=== PATIENT | female | born 1985 | race African-American/Black ===

== ENCOUNTER 2021-06-24 11:57 | Inpatient (IN) | payer BC ==
[2021-06-24] MEDS ORDERED: fentaNYL 100 MCG/2 ML INJ ONE (12:59)
[2021-06-24] MEDS ORDERED: ePHEDrine SULFATE 50 MG/1 ML INJ IV PRN ×2 (13:11→20:54)
[2021-06-24] MEDS ORDERED: fentaNYL 100 MCG/2 ML INJ IV PRN (13:11)
[2021-06-24] MEDS ORDERED: LIDOCAINE (2%) 20 MG/1 ML VIAL 20 ML MDV INFILTRATI ONE (13:11)
[2021-06-24] MEDS ORDERED: LOPERAMIDE 2 MG CAP PO PRN (13:11)
[2021-06-24] MEDS ORDERED: miSOPROStol 200 MCG TAB PR PRN (13:11)
[2021-06-24] MEDS ORDERED: ONDANSETRON 4 MG/2 ML INJ IV PRN ×2 (13:11→20:02)
[2021-06-24] MEDS ORDERED: CARBOPROST TROMETHAMINE 250 MCG/1 ML INJ IM PRN (13:11)
[2021-06-24] MEDS ORDERED: TERBUTALINE 1 MG/1 ML INJ SUB-Q PRN (13:11)
[2021-06-24] MEDS ORDERED: MINERAL OIL 30 ML ORAL LIQD PO PRN (13:11)
[2021-06-24] MEDS ORDERED: ACETAMINOPHEN 325 MG TAB PO PRN ×2 (13:11→20:02)
[2021-06-24] MEDS ORDERED: METHYLERGONOVINE MALEATE 0.2 MG/ML VIAL IM PRN (13:11)
[2021-06-24] MEDS ORDERED: BUTORPHANOL 2 MG/1 ML INJ IV PRN (13:11)
[2021-06-24] MEDS ORDERED: OXYTOCIN 10 UNIT/1 ML INJ IM PRN (13:11)
[2021-06-24] MEDS ORDERED: MAGNESIUM SULFATE 4 GM/100 ML BAG IV ONE (13:13)
[2021-06-24] MEDS ORDERED: LACTATED RINGERS 1,000 ML IV SCH ×2 (13:15→14:30)
--- NOTE | 2021-06-24 13:21 | History and Physical Report ---
History of Present Illness Date of examination: 06/24/21 Chief complaint: back pain and abd pain History of present illness: EDC Confirmation: 07/16/2021 Past History : 2 Term Births: 1 Premature Births: 0 Living Children: 1 Para: 1 Mult. Births: 0 Prev : 1 Aborta: 0 Elect. Ab: 0 Spont. Ab: 0 Ectopics: 0 # 1 Delivery date: 2012 Gestation: 40 Delivery type: Delivery location: [facility] Infant Sex: Male weight: 3kg Comments: arrest of dilatation and LTCS; denies complications Family History Summary: Mother - Has Family History of Diabetes - Entered On: 11/22/2020 Father - Has Family History of Diabetes - Entered On: 11/22/2020 Past Medical History: Reviewed history and no changes required: Negative Past Medical History Past Surgical History: Reviewed history and no changes required: Past Medical History Anesthesia Complications: negative Anemia: negative Autoimmune Disorder: negative Bleeding Disorder: negative Blood Transfusions: negative Breast Disease: negative Diabetes: negative Heart Disease: negative Hypertension: negative Hepatitis/Liver Disease: negative Kidney Disease/UTI: negative Neurologic/Epilepsy/Migraines: negative Phlebitis/Varicosities: negative Psychiatric: negative Pulmonary Disease/Asthma: negative Thyroid Disease: negative Hospitalizations: negative Surgery (Non-sterilization specialist): Abnormal PAP: negative NABEEL Exposure: negative Infertility: negative Uterine Anomaly: negative Uterine Surgery (not C/S): negative Other Gynecologic Problems: negative Infection History Hx of STD: none HIV Risk Eval: no Hepatitis B Risk Eval: low risk Personal hx. of genital herpes: no Partner hx. of genital herpes: no Rash, Viral, or Febrile illness since last LMP? no Varicella/Chicken Pox Status: Previous Disease TB Risk: no Genetic History Congenital Heart Defect: Mom: no Dad: no Sandor Disease: Mom: no Dad: no Thalassemia Mom: no Dad: no Neural Tube Defect Mom: no Dad: no Down's Syndrome Mom: no Dad: no Ebenezer-Sachs Mom: no Dad: no Sickle Cell Disease/Trait Mom: no Dad: no Hemophilia Mom: no Dad: no Muscular Dystrophy Mom: no Dad: no Cystic Fibrosis Mom: no Dad: no Hays Chorea Mom: no Dad: no Mental Retardation Mom: no Dad: no Fragile X Mom: no Dad: no Other Genetic/Chromosomal Disorder Mom: no Dad: no Child w/other defect Mom: no Dad: no Enviromental Exposures Enviromental Exposures Reviewed Xray Exposure: no Medication, drug, or alcohol use since LMP: no Chemical/Other Exposure: no Exposure to Cat Liter: no Hx of Parvovirus (Fifth Disease): no 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 Medications (reviewed today): PLUS 27-1 MG ORAL TABLET ( VIT-FE FUMARATE-FA) 1 po Current Allergies (reviewed today): No known allergies Past History Past Medical History: other (see HPI) Past Surgical History: other (see HPI) 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) Family/Genetic History: other (see HPI) Social history: no significant social history - Obstetrical History Expected Date of Delivery: 07/16/21 Actual Gestation: 36 Week(s) 6 Day(s) : 2 Para: 1 Hx # Term Pregnancies: 1 Number of Pregnancies: 0 Spontaneous Abortions: 0 Induced : 0 Number of Living Children: 1 Medications and Allergies Allergies Allergy/AdvReac Type Severity Reaction Status Date / Time No Known Allergies Allergy Unverified 06/24/21 12:50 Active Meds: Active Medications Acetaminophen (Acetaminophen 325 Mg Tab) 650 mg PO Q4H PRN PRN Reason: Pain, Mild (1-3) Butorphanol Tartrate (Butorphanol 2 Mg/1 Ml Inj) 1 mg IV Q2H PRN PRN Reason: Pain, Moderate(4-6) LABOR PAIN Carboprost Tromethamine (Carboprost Tromethamine 250 Mcg/1 Ml Inj) 250 mcg IM ONCE PRN PRN Reason: Uterine Bleeding Ephedrine Sulfate (Ephedrine Sulfate 50 Mg/1 Ml Inj) 10 mg IV Q2M PRN PRN Reason: Hypotension Fentanyl (Fentanyl 100 Mcg/2 Ml Inj) 100 mcg IV ONCE ONE Stop: 06/24/21 13:56 Fentanyl (Fentanyl 100 Mcg/2 Ml Inj) 100 mcg IV Q2H PRN PRN Reason: Pain,Severe (7-10) LABOR PAIN Lactated Ringer's (Lactated Ringers) 1,000 mls @ 125 mls/hr IV DIRECT HYACINTH Oxytocin/Sodium Chloride (Pitocin/Ns 30 Unit/500ml) 30 units in 500 mls @ 40 mls/hr IV TITR HYACINTH; Protocol Magnesium Sulfate (Magnesium Sulfate 40gm/1000ml) 40 gm in 1,000 mls @ 50 mls/hr IV DIRECT HYACINTH Magnesium Sulfate (Magnesium Sulfate 4gm/100ml) 4 gm in 100 mls @ 300 mls/hr IV ONCE ONE Stop: 06/24/21 13:32 Lidocaine (Lidocaine (2%) 20 Mg/1 Ml Vial 20 Ml Mdv) 20 ml INFILTRATI ONCE ONE Stop: 06/24/21 13:12 Loperamide HCl (Loperamide 2 Mg Cap) 2 mg PO ONCE PRN PRN Reason: give with Hemabate Methylergonovine Maleate (Methylergonovine Maleate 0.2 Mg/Ml Vial) 0.2 mg IM ONCE PRN PRN Reason: Uterine Bleeding Mineral Oil (Mineral Oil 30 Ml Oral Liqd) 30 ml PO QHS PRN PRN Reason: Constipation Misoprostol (Misoprostol 200 Mcg Tab) 800 mcg WI ONCE PRN PRN Reason: Uterine Bleeding Ondansetron HCl (Ondansetron 4 Mg/2 Ml Inj) 4 mg IV Q8H PRN PRN Reason: Nausea And Vomiting Oxytocin (Oxytocin 10 Unit/1 Ml Inj) 10 unit IM ONCE PRN PRN Reason: Uterine Bleeding Terbutaline Sulfate (Terbutaline 1 Mg/1 Ml Inj) 0.25 mg SUB-Q ONCE PRN PRN Reason: Hyperstimulation/Hypertonicity Review of Systems All systems: negative - Vital Signs Vital signs: Vital Signs Pulse Pulse Ox 92 H 97 06/24/21 12:53 06/24/21 12:53 Temp Pulse Resp BP Pulse Ox 80 150/91 98 06/24/21 13:13 06/24/21 13:09 06/24/21 13:13 - Physical Exam Lungs: Positive: Normal air movement Abdomen: Positive: tenderness, other (uterus is mild to moderate intensity) Results All other labs normal. Assessment and Plan 35y/o arrived to triage for evaluation d/t lower back pain and abd tightening since 0430 this morning. Upon arrival, rn unable to auscultate fht. official u/s to bedside found not FHT. Dr. Roberts and myself present during u/s - no cardiac activity noted. Pt reports last feeling baby move around 0730 today. Pt is appropriately distraught. emotional support provided. - Patient Problems (1) Elevated BP without diagnosis of hypertension Current Visit: Yes Status: Acute Plan to address problem: pre-e labs ordered Will start Mag sulfate 2gm/hr with a 4gm load Mag level q6 (2) IUFD (intrauterine ) Current Visit: Yes Status: Acute Plan to address problem: Confirmed no FHT by u/s prev c/s Patient being given time to consider option of vs repeat c/s (3) 36 weeks gestation of Current Visit: Yes Status: Acute
[2021-06-24] MEDS ORDERED: BICITRA ORAL LIQD 30ML ONE (13:53)
[2021-06-24] MEDS ORDERED: METOCLOPRAMIDE 10 MG/2 ML INJ ONE (13:54)
[2021-06-24] MEDS ORDERED: FAMOTIDINE 20 MG/2 ML INJ IV ONE ×2 (13:54→15:00)
[2021-06-24] MEDS ORDERED: fentaNYL 100 MCG/2 ML INJ IV ONE (13:55)
[2021-06-24] MEDS ORDERED: OXYTOCIN DRIP 30 UNITS/500 ML BAG IV SCH ×2 (14:00→20:02)
[2021-06-24] MEDS ORDERED: MAGNESIUM SULFATE 40GM/1000ML 40 GM/1,000 ML BAG IV SCH (14:00)
[2021-06-24 14:23] LABS: Hematocrit 25.9 % (30.3-42.9); Hemoglobin 8.1 gm/dl (10.1-14.3); Mean Corpuscular HGB Conc 31 % (30-34); Mean Corpuscular Volume 72 fl (79-97); Platelet Count 162 K/mm3 (140-440); Red Blood Count 3.58 M/mm3 (3.65-5.03); Red Cell Distribution Width 18.9 % (13.2-15.2)
--- NOTE | 2021-06-24 14:40 | Event Note ---
Date: 06/24/21 To patient bedside with CNM. Support offered to patient and significant other. Discussed with patient diagnosis of PreEclampsia with severe features due to severe range blood pressures. Reviewed need to begin magnesium sulfate for seizure prophylaxis. Options for delivery reviewed with patient, repeat C/S versus induction of labor. Risks and benefits of both reviewed. All questions answered. Patient and desire to proceed with RCS. Orders to be placed and charge nurse notified. All concerns at this time addressed.
--- NOTE | 2021-06-24 14:48 | Anesthesia Day of Surgery ---
Anesthesia Day of Surgery - Day of Surgery Patient Examined: Yes Patient H&P Reviewed: Yes Patient is NPO: Yes
--- NOTE | 2021-06-24 14:48 | Anesthesia Consultation ---
Anesthesia Consult and Med Hx Date of service: 06/24/21 - Airway Anesthetic Teeth Evaluation: Good ROM Head & Neck: Adequate Mental/Hyoid Distance: Adequate Mallampati Class: Class II Intubation Access Assessment: Probably Good - Pulmonary Exam CTA: Yes - Cardiac Exam Cardiac Exam: RRR - Pre-Operative Health Status ASA Pre-Surgery Classification: ASA3 Proposed Anesthetic Plan: Epidural, Spinal - Pulmonary Hx Asthma: No COPD: No Hx Pneumonia: No - Cardiovascular System Hx Hypertension: Yes - Endocrine Hx End Stage Renal Disease: No - Additional Comments Anesthesia Medical History Comments: IUFD
[2021-06-24] MEDS ORDERED: BICITRA ORAL LIQD 30ML PO ONE (15:00)
[2021-06-24] MEDS ORDERED: ceFAZolin/Water 2 GM/20 ML 2 GM/20 ML SYRINGE IV NR (15:00)
[2021-06-24] MEDS ORDERED: METOCLOPRAMIDE 10 MG/2 ML INJ IV ONE (15:00)
[2021-06-24 15:06] LABS: Uric Acid 5.5 mg/dL (3.5-7.6)
[2021-06-24] MEDS ORDERED: BUPIVACAINE/PF (0.5%) 5 MG/1 ML 30 ML VIAL INFILTRATI ONE (15:13)
[2021-06-24] MEDS ORDERED: ONDANSETRON 4 MG/2 ML INJ ONE (15:13)
[2021-06-24] MEDS ORDERED: MIDAZOLAM 5 MG/5 ML INJ MDV IV ONE (15:13)
[2021-06-24] MEDS ORDERED: dexAMETHasone 20 MG/5 ML VIAL ONE (15:13)
[2021-06-24] MEDS ORDERED: KETOROLAC 30 MG/1 ML INJ ONE ×2 (15:13→17:34)
[2021-06-24] MEDS ORDERED: WATER FOR IRRIG STERILE 1,500 ML BOTTLE IR ONE (16:08)
[2021-06-24] MEDS ORDERED: SODIUM CHLORIDE 0.9% IRR 1,500 ML BOTTLE IR ONE ×2 (16:08)
[2021-06-24] MEDS ORDERED: CALCIUM CHLORIDE 1,000 MG/10 ML SYRINGE IV ONE (16:30)
[2021-06-24] MEDS ORDERED: DIPHENOXYLATE/ATROPINE TAB ONE (16:41)
[2021-06-24] MEDS ORDERED: SODIUM CHLORIDE 0.9% 500 ML 500 ML IV ONE (17:00)
[2021-06-24 17:34] LABS: Bacteria,Urine 2+ /HPF (Negative); Bilirubin,Urine NEG (Negative); Blood,Urine LG (Negative); Color,Urine Amber (Yellow); Mucus,Urine 1+ /HPF; Protein,Urine >500 mg/dL (Negative); Urobilinogen,Urine < 2.0 mg/dL (<2.0)
--- NOTE | 2021-06-24 18:26 | Post Operative Note ---
Pre-op diagnosis: IUFD at 36w6d, Preeclampsia with severe features Post-op diagnosis: same (with complete placental abruption) Findings: female 1823g, scant meconium stained fluid, placenta immediately expelled at delivery with maternal surface covered in clot and multiple large dark blood clots, [place] uterus. Bilateral fallopian tubes and ovaries normal in appearance. Procedure: Repeat low transverse section Anesthesia: spinal Surgeon: ISAC GERARD Manager Support: JOSEFA GONGORA Estimated blood loss: other (QBL 1014 ml) Pathology: list (placenta) Specimen disposition: to lab Condition: stable Disposition: PACU
[2021-06-24 19:07] LABS: Hematocrit 23.5 % (30.3-42.9); Hemoglobin 7.2 gm/dl (10.1-14.3)
[2021-06-24] MEDS ORDERED: HYDROcodone/ACETAMINOPHEN 5-325 MG TAB PO PRN (20:02)
[2021-06-24] MEDS ORDERED: ceFAZolin/NS 1 GM/50 ML 1 GM/50 ML BAG IV SCH (20:02)
[2021-06-24] MEDS ORDERED: WITCH HAZEL/ GLYCERIN PAD TP PRN (20:02)
[2021-06-24] MEDS ORDERED: HYDROmorphone 1 MG/1 ML INJ IV PRN (20:02)
[2021-06-24] MEDS ORDERED: SENNOSIDES 8.6 MG TAB PO PRN (20:02)
[2021-06-24] MEDS ORDERED: LANOLIN/ZINC/DIMETHICONE (LANSINOH) 7 GM TP PRN (20:02)
[2021-06-24] MEDS ORDERED: MAGNESIUM HYDROXIDE (MOM) ORAL LIQD UDC PO PRN (20:02)
[2021-06-24] MEDS ORDERED: NALOXONE 0.4 MG/1 ML INJ IV PRN (20:02)
[2021-06-24] MEDS ORDERED: PROMETHAZINE 25 MG RECT SUPP PR PRN (20:02)
--- NOTE | 2021-06-24 20:02 | Event Note ---
Date: 06/24/21 Called nurse to check on patient, discussed with Soraya RN that it is imperative to monitor output and to call if UO drops below 30ml/hr. Soraya states she will do hourly I&Os. The patient just came out of PACU with 100mls of urine in giles bag.
[2021-06-24] MEDS ORDERED: ePHEDrine SULFATE 50 MG/1 ML INJ ONE (20:53)
--- NOTE | 2021-06-24 21:02 | Event Note ---
Date: 06/24/21 received call from Soraya GONGORA re:low blood pressure. Pt is arousable, b/p 60's-80's/30-50's, hr 60-70's, pulse ox 99% on RA. Anesthesia consulted - rn giving dose of ephedrine and IVF bolus. Dr. Roberts called and informed of status and recent H&H - orders for transfusion of 2 ordered units of blood. SANDHYA Pena called and aware of situation and new orders.
[2021-06-24] MEDS ORDERED: SODIUM CHLORIDE 0.9% 500 ML 500 ML IV SCH (22:00)
--- NOTE | 2021-06-24 22:13 | Event Note ---
Date: 06/24/21 To patient bedside for evaluation. Notes pain at her incision site. Some mild lightheadedness, but otherwise feels "ok." Abdomen soft, non-distended, and nontender. Dressing C/D/I. Vitals: BP 109/71, HR 90. UOP 0.74 ml/kg/hr since surgery. S/p ephedrine and approx 400 cc IVF per RN. Will transfuse 2 units pRBCS. Coags ordered. Repeat PIH labs at 0000. Magnesium sulfate held. Will continue to monitor.
[2021-06-24] MEDS: FERROUS SULFATE 325 MG TAB PO SCH (23:52)
[2021-06-25] MEDS: LACTATED RINGERS 1,000 ML IV SCH ×3 (05:01→19:23)
[2021-06-25 05:17] LABS: Hematocrit 27.9 % (30.3-42.9); Mean Corpuscular HGB Conc 32 % (30-34); Mean Corpuscular Volume 77 fl (79-97); Platelet Count 116 K/mm3 (140-440); Red Blood Count 3.62 M/mm3 (3.65-5.03)
[2021-06-25 05:20] LABS: INR 1.05 (0.87-1.13)
[2021-06-25 05:21] LABS: Partial Thromboplastin Time 25.9 Sec. (24.2-36.6); Red Cell Distribution Width 20.1 % (13.2-15.2)
[2021-06-25 05:41] LABS: Uric Acid 6.4 mg/dL (3.5-7.6)
[2021-06-25] MEDS ORDERED: HYDROcodone/ACETAMINOPHEN 5-325 MG TAB PO PRN (08:00)
--- NOTE | 2021-06-25 08:04 | Ultrasound Report ---
Limited OB Ultrasound HISTORY: Evaluate heart tones. TECHNIQUE: Grayscale and color imaging performed. COMPARISON: None IMPRESSION: Very limited exam demonstrates absence of heart tones. Dr. 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 Signer Name: Tobin Tesfaye MD Signed: 06/24/2021 1:42 PM Workstation Name: [id number]
--- NOTE | 2021-06-25 08:14 | Progress Note ---
<JONY LAZARO - Last Filed: 06/25/21 12:59> Assessment and Plan A: 35 y.o. s/p rpt , pre elcampsia with severe features, IUFD. P: Continue with post op care. Keep on labor and delivery for now. Will closely monitor labs and blood pressures. Labs ordered for noon today. Continue with strict I&O's. Subjective - Subjective Date of service: 06/25/21 Principal diagnosis: s/p rpt , POD #1, IUFD, Pre eclampsia with severe features : other (IUFD) Objective - Vital Signs Latest vital signs: Vital Signs Temp Pulse Resp BP BP Pulse Ox Pulse Ox 06/25/21 08:08 83 98 06/25/21 08:03 85 98 06/25/21 07:58 91 H 99 06/25/21 07:53 88 99 06/25/21 07:48 89 99 06/25/21 07:43 86 99 06/25/21 07:38 92 H 97 06/25/21 07:36 82 123/74 06/25/21 07:33 82 98 06/25/21 07:28 86 98 06/25/21 07:23 82 98 99 06/25/21 07:18 101 H 99 06/25/21 07:13 98 H 98 06/25/21 07:08 78 98 06/25/21 07:03 81 98 06/25/21 06:58 83 98 06/25/21 06:53 103 H 98 06/25/21 06:48 84 98 06/25/21 06:43 82 99 06/25/21 06:38 85 98 06/25/21 06:36 84 106/62 06/25/21 06:33 76 97 06/25/21 06:28 78 99 06/25/21 06:23 78 98 06/25/21 06:18 82 98 06/25/21 06:13 77 98 06/25/21 06:08 86 98 06/25/21 06:03 85 98 06/25/21 05:58 82 98 06/25/21 05:53 80 98 06/25/21 05:48 88 99 06/25/21 05:43 89 99 06/25/21 05:38 81 99 06/25/21 05:36 98.2 F 77 18 117/73 117/78 99 06/25/21 05:33 89 99 06/25/21 05:28 88 99 06/25/21 05:23 89 99 06/25/21 05:18 87 99 06/25/21 05:13 89 99 06/25/21 05:08 89 99 06/25/21 05:03 96 H 99 06/25/21 04:58 94 H 98 06/25/21 04:53 113 H 98 06/25/21 04:48 85 99 06/25/21 04:43 95 H 99 06/25/21 04:38 96 H 99 06/25/21 04:37 92 H 153/69 06/25/21 04:33 85 98 06/25/21 04:28 84 98 06/25/21 04:23 94 H 98 06/25/21 04:18 84 98 06/25/21 04:13 93 H 99 06/25/21 04:08 92 H 98 06/25/21 04:03 98 H 99 06/25/21 03:58 97 H 99 06/25/21 03:53 99 H 99 06/25/21 03:48 103 H 99 06/25/21 03:43 79 98 06/25/21 03:38 75 98 06/25/21 03:36 88 121/69 06/25/21 03:33 78 99 06/25/21 03:28 73 98 06/25/21 03:23 80 99 06/25/21 03:18 89 98 06/25/21 03:13 85 99 06/25/21 03:08 77 98 06/25/21 03:03 74 98 06/25/21 02:58 90 98 06/25/21 02:53 84 98 06/25/21 02:48 80 98 06/25/21 02:43 85 98 06/25/21 02:38 102 H 98 06/25/21 02:36 98.3 F 88 16 123/68 123/68 94 06/25/21 02:33 87 98 06/25/21 02:28 85 98 06/25/21 02:23 88 98 06/25/21 02:18 78 98 06/25/21 02:13 74 98 06/25/21 02:08 86 98 06/25/21 02:03 90 98 06/25/21 01:58 84 98 06/25/21 01:53 75 97 06/25/21 01:48 87 98 06/25/21 01:43 87 98 06/25/21 01:38 81 98 06/25/21 01:36 85 113/68 06/25/21 01:33 73 98 06/25/21 01:28 88 98 06/25/21 01:23 80 98 06/25/21 01:18 78 97 06/25/21 01:13 85 97 06/25/21 01:08 88 98 06/25/21 01:06 98.3 F 77 16 120/71 98 06/25/21 01:03 82 98 06/25/21 00:58 81 98 06/25/21 00:53 90 98 06/25/21 00:48 84 98 06/25/21 00:43 81 98 06/25/21 00:38 76 98 06/25/21 00:36 98.3 F 83 16 112/71 98 06/25/21 00:33 76 98 06/25/21 00:28 79 98 06/25/21 00:23 75 98 06/25/21 00:18 80 98 06/25/21 00:13 81 98 06/25/21 00:08 79 98 06/25/21 00:06 98.3 F 83 16 115/63 99 06/25/21 00:05 98.3 F 83 16 115/63 99 06/25/21 00:03 95 H 99 06/24/21 23:58 79 98 06/24/21 23:55 98.1 F 86 16 115/68 98 06/24/21 23:53 79 98 06/24/21 23:48 84 98 06/24/21 23:43 83 98 06/24/21 23:38 94 H 98 06/24/21 23:35 98.3 F 86 16 115/68 115/68 98 06/24/21 23:33 94 H 98 06/24/21 23:29 80 112/63 06/24/21 23:28 92 H 98 06/24/21 23:25 98.2 F 81 16 112/63 98 06/24/21 23:23 83 98 06/24/21 23:18 106 H 99 06/24/21 23:13 85 98 06/24/21 23:10 98.2 F 90 16 102/63 97 05 23:08 78 98 05 23:06 88 102/63 06/24/21 23:05 98.2 F 90 16 102/63 97 05 23:03 82 98 06/24/21 22:58 83 99 05 22:53 85 99 06/24/21 22:48 82 98 06/24/21 22:43 88 99 06/24/21 22:38 101 H 100 06/24/21 22:37 98.3 F 89 16 113/59 98 06/24/21 22:36 96 H 113/59 06/24/21 22:33 100 H 98 06/24/21 22:28 84 98 06/24/21 22:23 87 98 06/24/21 22:18 92 H 99 06/24/21 22:13 75 99 06/24/21 22:08 85 99 06/24/21 22:07 98.3 F 74 16 111/65 99 06/24/21 22:06 78 111/65 06/24/21 22:03 81 99 06/24/21 21:58 89 100 06/24/21 21:53 87 98 06/24/21 21:48 94 H 100 06/24/21 21:43 75 98 06/24/21 21:38 86 99 06/24/21 21:37 98.1 F 90 16 109/71 99 05 21:33 86 100 06/24/21 21:28 88 110/75 100 05 21:23 97 H 98 06/24/21 21:22 98.3 F 116 H 18 101/86 100 05 21:19 102 H 101/86 05 21:18 87 98 05 21:13 89 98 05 21:08 92 H 99/60 99 05 21:03 86 98 0521 20:58 78 104/72 98 0521 20:53 67 99 05/21 20:50 67 63/38 1005/21 20:48 74 66/41 100 1005/21 20:44 70 62/34 1005/21 20:43 64 99 06/24/21 20:41 98.4 F 64 16 64/33 64/33 99 06/24/21 20:39 62 78/45 06/24/21 20:38 75 88/50 99 06/24/21 20:30 18 06/24/21 19:34 76 100 06/24/21 19:25 99 06/24/21 19:08 98.8 F 80 16 123/86 100 06/24/21 18:55 84 16 138/90 100 06/24/21 18:40 88 16 152/82 06/24/21 18:24 83 16 160/141 06/24/21 18:19 114 H 16 153/97 06/24/21 18:14 106 H 16 146/115 100 06/24/21 18:09 97.7 F 68 16 205/162 100 06/24/21 15:34 101 H 97 06/24/21 15:33 106 H 94 06/24/21 15:29 95 H 95 06/24/21 15:24 100 H 96 06/24/21 15:19 93 H 97 06/24/21 15:14 94 H 99 06/24/21 15:09 90 146/94 97 06/24/21 15:04 72 97 06/24/21 14:59 78 99 06/24/21 14:54 93 H 99 06/24/21 14:49 89 97 06/24/21 14:45 84 94 06/24/21 14:44 72 95 06/24/21 14:39 91 H 136/85 97 06/24/21 14:34 84 95 06/24/21 14:29 89 98 06/24/21 14:24 98.1 F 73 18 129/83 98 06/24/21 14:19 81 96 06/24/21 14:15 98 06/24/21 14:14 67 98 06/24/21 14:13 67 133/83 06/24/21 14:09 80 141/94 97 06/24/21 13:54 91 H 156/99 06/24/21 13:48 99 H 97 06/24/21 13:43 79 100 06/24/21 13:40 84 94 06/24/21 13:39 78 157/95 06/24/21 13:38 72 98 06/24/21 13:33 80 99 06/24/21 13:28 75 96 06/24/21 13:24 76 152/95 06/24/21 13:23 74 99 06/24/21 13:18 79 99 06/24/21 13:13 80 98 06/24/21 13:09 76 150/91 06/24/21 13:08 89 99 06/24/21 13:03 77 99 06/24/21 12:58 105 H 96 06/24/21 12:54 91 H 166/104 06/24/21 12:53 92 H 97 Intake and Output 06/24/21 06/25/21 06/25/21 22:59 06:59 14:59 Intake Total 2200 640 Output Total 670 700 Balance 1530 -60 Intake: IV 2100 Oral 100 640 Blood Product 0 0 Leukoreduced Red Blood 0 Cells Unit [id number] Leukoreduced Red Blood 0 0 Cells Unit [id number] Output: Urine 670 700 Indwelling Catheter 260 360 Uretheral (Pedroza) 260 340 Other: Total, Intake Amount 50 240 Total, Output Amount 60 80 Estimated Blood Loss 1,014 - Exam Narrative Exam: Pt denies BRAND, blurred vision, spots before her eyes, chest pain, shortness of breath, and upper abdominal pain. Blood pressure ranges have been 110's-120's/50-60's. Her mag was discontinued during the night d/t blood pressure ranges being 60's/30-40's after pain medication administration. Offe red emotional support d/t IUFD. Breasts: Present: deferred Cardiovascular: Present: Normal S1, Normal S2 Lungs: Present: Clear to auscultation Abdomen: Present: normal appearance, soft, other (hypoactive bowel sounds) Vulva: both: normal Uterus: Present: normal, firm Extremities: Present: edema (+ edema noted.) Deep Tendon Reflex Grade: Normal +2 Incision: Present: normal, dry, intact, dressed - Labs Labs: Abnormal lab results 06/24/21 06/24/21 06/24/21 Range/Units 13:40 13:40 13:40 WBC 16.0 H (4.5-11.0) K/mm3 RBC 3.58 L (3.65-5.03) M/mm3 Hgb 8.1 L (10.1-14.3) gm/dl Hct 25.9 L (30.3-42.9) % MCV 72 L (79-97) fl MCH 23 L (28-32) pg RDW 18.9 H (13.2-15.2) % Plt Count (140-440) K/mm3 D-Dimer (0-234) ng/mlDDU Creatinine 1.4 H (0.6-1.2) mg/dL Magnesium (1.7-2.3) mg/dL AST 48 H (5-40) units/L Lactate Dehydrogenase 886 H (91-180) units/L Urine WBC (Auto) (0.0-6.0) /HPF Crossmatch See Detail 06/24/21 06/24/21 06/24/21 Range/Units 18:47 18:47 Unknown WBC (4.5-11.0) K/mm3 RBC (3.65-5.03) M/mm3 Hgb 7.2 L (10.1-14.3) gm/dl Hct 23.5 L (30.3-42.9) % MCV (79-97) fl MCH (28-32) pg RDW (13.2-15.2) % Plt Count (140-440) K/mm3 D-Dimer (0-234) ng/mlDDU Creatinine (0.6-1.2) mg/dL Magnesium 3.90 H (1.7-2.3) mg/dL AST (5-40) units/L Lactate Dehydrogenase (91-180) units/L Urine WBC (Auto) 24.0 H (0.0-6.0) /HPF Crossmatch 06/25/21 06/25/21 06/25/21 Range/Units 04:50 04:50 04:50 WBC 20.2 H (4.5-11.0) K/mm3 RBC 3.62 L (3.65-5.03) M/mm3 Hgb 9.0 L (10.1-14.3) gm/dl Hct 27.9 L (30.3-42.9) % MCV 77 L (79-97) fl MCH 25 L (28-32) pg RDW 20.1 H (13.2-15.2) % Plt Count 116 L (140-440) K/mm3 D-Dimer 3839.04 H (0-234) ng/mlDDU Creatinine 2.6 H D (0.6-1.2) mg/dL Magnesium (1.7-2.3) mg/dL AST (5-40) units/L Lactate Dehydrogenase 574 H (91-180) units/L Urine WBC (Auto) (0.0-6.0) /HPF Crossmatch <LATASHA JAFFE D - Last Filed: 06/25/21 17:46> Assessment and Plan Preeclampsia and abruption discussed with Ms. Everett and her her . Plan of care reviewed. Questions encouraged and answered. They voiced understanding and agreed with POC Objective - Vital Signs Latest vital signs: Vital Signs Temp Pulse Resp BP BP Pulse Ox Pulse Ox 06/25/21 17:38 83 98 06/25/21 17:36 90 141/77 06/25/21 17:33 82 98 06/25/21 17:28 78 96 06/25/21 17:23 72 97 06/25/21 17:18 68 97 06/25/21 17:13 69 97 06/25/21 17:08 69 98 06/25/21 17:03 71 98 06/25/21 16:58 78 97 06/25/21 16:53 79 97 06/25/21 16:48 69 97 06/25/21 16:43 75 98 06/25/21 16:38 75 98 06/25/21 16:36 73 116/61 06/25/21 16:33 84 99 06/25/21 16:28 91 H 98 06/25/21 16:23 84 99 06/25/21 16:18 81 98 06/25/21 16:13 80 99 06/25/21 16:08 91 H 99 06/25/21 16:03 85 98 06/25/21 15:58 75 98 06/25/21 15:53 88 99 06/25/21 15:48 93 H 99 06/25/21 15:43 96 H 98 06/25/21 15:38 78 98 06/25/21 15:36 75 129/63 06/25/21 15:33 76 98 06/25/21 15:28 76 98 06/25/21 15:23 94 H 98 06/25/21 15:21 98.4 F 18 98 06/25/21 15:18 80 98 06/25/21 15:13 83 98 06/25/21 15:08 76 98 06/25/21 15:03 79 98 06/25/21 14:58 81 99 06/25/21 14:53 87 98 06/25/21 14:48 81 99 06/25/21 14:43 85 99 06/25/21 14:38 79 98 06/25/21 14:36 82 139/62 06/25/21 14:33 76 99 06/25/21 14:28 80 99 06/25/21 14:23 87 98 06/25/21 14:18 81 99 06/25/21 14:13 80 100 06/25/21 14:08 92 H 100 06/25/21 14:05 97.9 F 20 99 06/25/21 14:03 110 H 99 06/25/21 13:58 74 141/73 96 06/25/21 13:53 77 98 06/25/21 13:48 69 97 06/25/21 13:43 73 97 06/25/21 13:38 71 98 06/25/21 13:33 73 96 06/25/21 13:28 72 97 06/25/21 13:23 73 97 06/25/21 13:18 78 98 06/25/21 13:13 72 98 06/25/21 13:08 75 98 06/25/21 13:03 87 98 06/25/21 12:58 94 H 98 06/25/21 12:53 84 98 06/25/21 12:48 82 98 06/25/21 12:43 80 98 06/25/21 12:38 77 98 06/25/21 12:33 93 H 98 06/25/21 12:28 72 98 06/25/21 12:23 73 98 06/25/21 12:18 75 97 06/25/21 12:13 72 97 06/25/21 12:08 72 97 06/25/21 12:03 76 97 06/25/21 11:58 77 97 06/25/21 11:53 98.2 F 72 18 99 06/25/21 11:48 68 98 06/25/21 11:43 69 97 06/25/21 11:38 88 96 06/25/21 11:36 75 150/69 06/25/21 11:33 77 97 06/25/21 11:28 67 97 06/25/21 11:23 86 98 06/25/21 11:18 74 97 06/25/21 11:13 73 97 06/25/21 11:08 71 97 06/25/21 11:03 71 98 06/25/21 10:58 73 97 06/25/21 10:53 78 98 06/25/21 10:48 80 98 06/25/21 10:43 81 98 06/25/21 10:38 82 99 06/25/21 10:36 74 121/70 06/25/21 10:33 77 98 06/25/21 10:28 83 98 06/25/21 10:23 80 98 06/25/21 10:18 79 99 06/25/21 10:13 83 98 06/25/21 10:08 105 H 99 06/25/21 10:03 77 98 06/25/21 09:58 88 99 06/25/21 09:53 110 H 100 06/25/21 09:48 88 99 06/25/21 09:43 94 H 99 06/25/21 09:38 82 99 06/25/21 09:36 93 H 145/83 06/25/21 09:33 90 99 06/25/21 09:28 92 H 99 06/25/21 09:23 99 H 99 06/25/21 09:18 86 99 06/25/21 09:13 79 98 06/25/21 09:08 85 99 06/25/21 09:03 84 98 06/25/21 08:58 94 H 98 06/25/21 08:53 95 H 99 06/25/21 08:48 73 98 06/25/21 08:43 77 98 06/25/21 08:38 75 97 06/25/21 08:36 75 128/63 06/25/21 08:33 78 98 06/25/21 08:28 79 98 06/25/21 08:23 74 97 06/25/21 08:18 82 98 06/25/21 08:13 78 98 06/25/21 08:08 83 98 06/25/21 08:03 85 98 06/25/21 07:58 91 H 99 06/25/21 07:53 88 99 06/25/21 07:48 89 99 06/25/21 07:43 86 99 06/25/21 07:38 92 H 97 06/25/21 07:36 82 123/74 06/25/21 07:33 82 98 06/25/21 07:28 86 98 06/25/21 07:23 82 98 99 06/25/21 07:18 101 H 99 06/25/21 07:13 98 H 98 06/25/21 07:08 78 98 06/25/21 07:03 81 98 06/25/21 06:58 83 98 06/25/21 06:53 103 H 98 06/25/21 06:48 84 98 06/25/21 06:43 82 99 06/25/21 06:38 85 98 06/25/21 06:36 84 106/62 06/25/21 06:33 76 97 06/25/21 06:28 78 99 06/25/21 06:23 78 98 06/25/21 06:18 82 98 06/25/21 06:13 77 98 06/25/21 06:08 86 98 06/25/21 06:03 85 98 06/25/21 05:58 82 98 06/25/21 05:53 80 98 06/25/21 05:48 88 99 06/25/21 05:43 89 99 06/25/21 05:38 81 99 06/25/21 05:36 98.2 F 77 18 117/73 117/78 99 06/25/21 05:33 89 99 06/25/21 05:28 88 99 06/25/21 05:23 89 99 06/25/21 05:18 87 99 06/25/21 05:13 89 99 06/25/21 05:08 89 99 06/25/21 05:03 96 H 99 06/25/21 04:58 94 H 98 06/25/21 04:53 113 H 98 06/25/21 04:48 85 99 06/25/21 04:43 95 H 99 06/25/21 04:38 96 H 99 06/25/21 04:37 92 H 153/69 06/25/21 04:33 85 98 06/25/21 04:28 84 98 06/25/21 04:23 94 H 98 06/25/21 04:18 84 98 06/25/21 04:13 93 H 99 06/25/21 04:08 92 H 98 06/25/21 04:03 98 H 99 06/25/21 03:58 97 H 99 06/25/21 03:53 99 H 99 06/25/21 03:48 103 H 99 06/25/21 03:43 79 98 06/25/21 03:38 75 98 06/25/21 03:36 88 121/69 06/25/21 03:33 78 99 06/25/21 03:28 73 98 06/25/21 03:23 80 99 06/25/21 03:18 89 98 06/25/21 03:13 85 99 06/25/21 03:08 77 98 06/25/21 03:03 74 98 06/25/21 02:58 90 98 06/25/21 02:53 84 98 06/25/21 02:48 80 98 06/25/21 02:43 85 98 06/25/21 02:38 102 H 98 06/25/21 02:36 98.3 F 88 16 123/68 123/68 94 06/25/21 02:33 87 98 06/25/21 02:28 85 98 06/25/21 02:23 88 98 06/25/21 02:18 78 98 06/25/21 02:13 74 98 06/25/21 02:08 86 98 06/25/21 02:03 90 98 06/25/21 01:58 84 98 06/25/21 01:53 75 97 06/25/21 01:48 87 98 06/25/21 01:43 87 98 06/25/21 01:38 81 98 06/25/21 01:36 85 113/68 06/25/21 01:33 73 98 06/25/21 01:28 88 98 06/25/21 01:23 80 98 06/25/21 01:18 78 97 06/25/21 01:13 85 97 06/25/21 01:08 88 98 06/25/21 01:06 98.3 F 77 16 120/71 98 06/25/21 01:03 82 98 06/25/21 00:58 81 98 06/25/21 00:53 90 98 06/25/21 00:48 84 98 06/25/21 00:43 81 98 06/25/21 00:38 76 98 06/25/21 00:36 98.3 F 83 16 112/71 98 06/25/21 00:33 76 98 06/25/21 00:28 79 98 06/25/21 00:23 75 98 06/25/21 00:18 80 98 06/25/21 00:13 81 98 06/25/21 00:08 79 98 06/25/21 00:06 98.3 F 83 16 115/63 99 06/25/21 00:05 98.3 F 83 16 115/63 99 06/25/21 00:03 95 H 99 06/24/21 23:58 79 98 06/24/21 23:55 98.1 F 86 16 115/68 98 06/24/21 23:53 79 98 06/24/21 23:48 84 98 06/24/21 23:43 83 98 06/24/21 23:38 94 H 98 06/24/21 23:35 98.3 F 86 16 115/68 115/68 98 06/24/21 23:33 94 H 98 06/24/21 23:29 80 112/63 06/24/21 23:28 92 H 98 06/24/21 23:25 98.2 F 81 16 112/63 98 06/24/21 23:23 83 98 06/24/21 23:18 106 H 99 06/24/21 23:13 85 98 06/24/21 23:10 98.2 F 90 16 102/63 97 06/24/21 23:08 78 98 06/24/21 23:06 88 102/63 06/24/21 23:05 98.2 F 90 16 102/63 97 06/24/21 23:03 82 98 06/24/21 22:58 83 99 06/24/21 22:53 85 99 06/24/21 22:48 82 98 06/24/21 22:43 88 99 06/24/21 22:38 101 H 100 06/24/21 22:37 98.3 F 89 16 113/59 98 06/24/21 22:36 96 H 113/59 06/24/21 22:33 100 H 98 06/24/21 22:28 84 98 06/24/21 22:23 87 98 06/24/21 22:18 92 H 99 06/24/21 22:13 75 99 06/24/21 22:08 85 99 06/24/21 22:07 98.3 F 74 16 111/65 99 06/24/21 22:06 78 111/65 06/24/21 22:03 81 99 06/24/21 21:58 89 100 06/24/21 21:53 87 98 06/24/21 21:48 94 H 100 06/24/21 21:43 75 98 06/24/21 21:38 86 99 06/24/21 21:37 98.1 F 90 16 109/71 99 06/24/21 21:33 86 100 06/24/21 21:28 88 110/75 100 06/24/21 21:23 97 H 98 06/24/21 21:22 98.3 F 116 H 18 101/86 100 06/24/21 21:19 102 H 101/86 06/24/21 21:18 87 98 06/24/21 21:13 89 98 06/24/21 21:08 92 H 99/60 99 06/24/21 21:03 86 98 06/24/21 20:58 78 104/72 98 06/24/21 20:53 67 99 06/24/21 20:50 67 63/38 06/24/21 20:48 74 66/41 100 06/24/21 20:44 70 62/34 06/24/21 20:43 64 99 06/24/21 20:41 98.4 F 64 16 64/33 64/33 99 06/24/21 20:39 62 78/45 06/24/21 20:38 75 88/50 99 06/24/21 20:30 18 06/24/21 19:34 76 100 06/24/21 19:25 99 06/24/21 19:08 98.8 F 80 16 123/86 100 06/24/21 18:55 84 16 138/90 100 06/24/21 18:40 88 16 152/82 06/24/21 18:24 83 16 160/141 06/24/21 18:19 114 H 16 153/97 06/24/21 18:14 106 H 16 146/115 100 06/24/21 18:09 97.7 F 68 16 205/162 100 Intake and Output 10/06/21 10/06/21 10/06/21 06:59 14:59 22:59 Intake Total 640 889.583 Output Total 700 225 150 Balance -60 664.583 -150 Intake: IV 889.583 Lactated Ringers 1,000 ml 889.583 @ 125 mls/hr IV DIRECT HYACINTH Rx#:[id number] Oral 640 Blood Product 0 Leukoreduced Red Blood 0 Cells Unit [id number] Leukoreduced Red Blood 0 Cells Unit [id number] Output: Urine 700 225 150 Indwelling Catheter 360 150 150 Uretheral (Pedroza) 340 75 Other: Total, Intake Amount 240 Total, Output Amount 80 100 150 - Labs Labs: Abnormal lab results 06/24/21 06/24/21 06/24/21 Range/Units 13:40 18:47 18:47 WBC (4.5-11.0) K/mm3 RBC (3.65-5.03) M/mm3 Hgb 7.2 L (10.1-14.3) gm/dl Hct 23.5 L (30.3-42.9) % MCV (79-97) fl MCH (28-32) pg RDW (13.2-15.2) % Plt Count (140-440) K/mm3 Lymph % (Auto) (13.4-35.0) % Ashe # (Auto) (0.0-0.8) K/mm3 Seg Neutrophils % (40.0-70.0) % Seg Neutrophils # (1.8-7.7) K/mm3 D-Dimer (0-234) ng/mlDDU Sodium (137-145) mmol/L Carbon Dioxide (22-30) mmol/L BUN (7-17) mg/dL Creatinine (0.6-1.2) mg/dL Glucose (65-100) mg/dL Magnesium 3.90 H (1.7-2.3) mg/dL Alkaline Phosphatase (35-129) units/L Lactate Dehydrogenase (91-180) units/L Total Protein (6.3-8.2) g/dL Albumin (3.9-5) g/dL Crossmatch See Detail 06/25/21 06/25/21 06/25/21 Range/Units 04:50 04:50 04:50 WBC 20.2 H (4.5-11.0) K/mm3 RBC 3.62 L (3.65-5.03) M/mm3 Hgb 9.0 L (10.1-14.3) gm/dl Hct 27.9 L (30.3-42.9) % MCV 77 L (79-97) fl MCH 25 L (28-32) pg RDW 20.1 H (13.2-15.2) % Plt Count 116 L (140-440) K/mm3 Lymph % (Auto) (13.4-35.0) % Ashe # (Auto) (0.0-0.8) K/mm3 Seg Neutrophils % (40.0-70.0) % Seg Neutrophils # (1.8-7.7) K/mm3 D-Dimer 3839.04 H (0-234) ng/mlDDU Sodium (137-145) mmol/L Carbon Dioxide (22-30) mmol/L BUN (7-17) mg/dL Creatinine 2.6 H D (0.6-1.2) mg/dL Glucose (65-100) mg/dL Magnesium (1.7-2.3) mg/dL Alkaline Phosphatase (35-129) units/L Lactate Dehydrogenase 574 H (91-180) units/L Total Protein (6.3-8.2) g/dL Albumin (3.9-5) g/dL Crossmatch 06/25/21 06/25/21 06/25/21 Range/Units 12:30 12:30 12:30 WBC 19.5 H (4.5-11.0) K/mm3 RBC 3.21 L (3.65-5.03) M/mm3 Hgb 7.9 L (10.1-14.3) gm/dl Hct 24.4 L (30.3-42.9) % MCV 76 L (79-97) fl MCH 25 L (28-32) pg RDW 20.2 H (13.2-15.2) % Plt Count 132 L (140-440) K/mm3 Lymph % (Auto) 8.0 L (13.4-35.0) % [place]he # (Auto) 1.1 H (0.0-0.8) K/mm3 Seg Neutrophils % 86.3 H (40.0-70.0) % Seg Neutrophils # 16.9 H (1.8-7.7) K/mm3 D-Dimer 1974.59 H (0-234) ng/mlDDU Sodium 136 L (137-145) mmol/L Carbon Dioxide 16 L (22-30) mmol/L BUN 25 H (7-17) mg/dL Creatinine 2.6 H (0.6-1.2) mg/dL Glucose 127 H (65-100) mg/dL Magnesium (1.7-2.3) mg/dL Alkaline Phosphatase 162 H (35-129) units/L Lactate Dehydrogenase 491 H (91-180) units/L Total Protein 4.9 L (6.3-8.2) g/dL Albumin 2.4 L (3.9-5) g/dL Crossmatch
[2021-06-25] MEDS ORDERED: BUTORPHANOL 2 MG/1 ML INJ IV PRN ×2 (09:00)
[2021-06-25] MEDS: FERROUS SULFATE 325 MG TAB PO SCH ×2 (09:15→21:52)
--- NOTE | 2021-06-25 11:09 | Post Anesthesia Evaluation ---
- Post Anesthesia Evaluation Patient Participated: Yes Airway Patent: Yes Stable Respiratory Function: Yes Nausea/Vomiting: No Temp > 96.8F: Yes Pain Manageable: Yes Adequeate Hydration: Yes Anesthesia Complications: No Block Receding Appropriately: Yes
--- NOTE | 2021-06-25 11:18 | Progress Note ---
Spinal Anesthesia Block - Spinal Anesthesia Block Start Time: 15:44 Stop Time: 15:46 Performed by:: TENZIN JIMENEZ Procedure: Sitting, sterile chlorahexadine 0.5% prep/drape, 1% lidocaine skin local, 25G spinal needle + introducer at L3-4, + CSF, - Heme, [1.9 ml 0.5% bupivacaine + 10 mcg dexmedetomidine] injected, drape removed, patient positioned supine with left uterine displacement, and spinal level verified to be adequate prior to surgery
[2021-06-25 12:52] LABS: Basophils % (Auto) 0.3 % (0.0-1.8); Hematocrit 24.4 % (30.3-42.9); Hemoglobin 7.9 gm/dl (10.1-14.3); Lymphocytes # (Auto) 1.6 K/mm3 (1.2-5.4); Mean Corpuscular HGB Conc 32 % (30-34); Mean Corpuscular Volume 76 fl (79-97); Monocytes # (Auto) 1.1 K/mm3 (0.0-0.8); Monocytes % (Auto) 5.4 % (0.0-7.3); Platelet Count 132 K/mm3 (140-440); Red Blood Count 3.21 M/mm3 (3.65-5.03)
[2021-06-25 12:53] LABS: Red Cell Distribution Width 20.2 % (13.2-15.2)
[2021-06-25 13:02] LABS: INR 1.12 (0.87-1.13); Partial Thromboplastin Time 27.8 Sec. (24.2-36.6)
[2021-06-25 13:10] LABS: Albumin 2.4 g/dL (3.9-5); Calcium 8.4 mg/dL (8.4-10.2)
[2021-06-25] MEDS ORDERED: ACETAMINOPHEN 325 MG TAB PO SCH (14:30)
[2021-06-25] MEDS: ACETAMINOPHEN 500 MG TAB PO SCH ×2 (15:40→21:36)
--- NOTE | 2021-06-25 16:11 | Operative Report ---
Operative Report Operative Report: Procedure Date: 06/24/2021 Preoperative diagnosis: IUP @ 36.6 weeks, history of prior section, IUFD, preeclampsia with severe features, suspected placental abruption Postoperative diagnosis: same, s/p PLTCS with complete placental abruption Procedure: Primary Low Transverse Section Surgeon: Kirti Roberts MD Marking Devices Assembler: Yelena Beard CNM Anesthesia: spinal Complications: none QBL: 1014 ml IV Fluids:2000 ml UOP: 50 ml, clear urine at the end of procedure Indications: IUFD with history of prior section, maternal request Findings: 1624g female Amniotic meconium stained Uterus with multiple large dark clots, completely filling the uterus; [place] uterus Fallopian tubes normal in appearance Ovaries Normal in appearance Procedure: The patient was taken to the operating room where spinal anesthesia was found to be adequate. She was then prepped and draped in the usual sterile fashion in the dorsal supine position with a leftward tilt. 2 g Ancef was given prior to the procedure. A Pfannenstiel skin incision was made with the scalpel and carried through to the underlying layer of fascia with the bovie. The fascia was incised in the midline and the incision extended laterally. The superior aspect of the fascial incision was then grasped with the Dre's clamps, elevated, and the underlying rectus muscles dissected off bluntly and with sharp dissection using the scalpel. Attention was then turned to the inferior aspect of this incision which, in a similar fashion, was grasped, tented up with the Dre clamps, and the rectus was dissected off bluntly and with sharp dissection. The rectus muscles were then in the midline using the scalpel, and the peritoneum identified, tented up and entered sharply with the Metzenbaum scissors. Bloody peritoneal fluid was expelled. The peritoneal incision was then extended superiorly and inferiorly with good visualization of the bladder. The bladder blade was then inserted. The lower uterine segment incised in a transverse fashion with the scalpel. The uterine incision was then extended laterally digitally. The bladder blade was then removed and the was delivered.The placenta was then removed; following this multiple large dark blood clots were expelled from the uterus. the uterus exteriorized and cleared of all clots and debris. The uterine incision was repaired with 0 vicryl in a running locked fashion to obtain excellent hemostasis. A slight extension at the right lateral aspect of the hysterotomy was noted and repaired in a running fashion. An imbrication layer with 0 vicryl done given excellent hemostasis. Uterus returned to the abdomen. The uterus was noted to be boggy during repair and the patient recieved Hemabate and IM pitocin to the uterus. Slight oozing noted, controlled with figure of eight suture. Surgicel powder applied. Good hemostasis noted. The abdomen was irrigated until clear. Dr. Duff scrubbed in to evaluate the uterus for any possible signs of rupture, but none noted. A figure of eight stitch of 2-0 Vicryl was placed to reapproximate the rectus muscle. The fascia was reapproximated with 0 vicryl in a running fashion. Subcutaneous layer reapproximated with interrupted sutures of 2-0 vicryl. The skin was closed with 4-0 monocryl in a subcuticular fashion and the incision sealed with Steri-strips.The patient tolerated the procedure well. Sponge, lap, needle counts correct X 3. The patient was taken to the recovery room in a stable condition.
[2021-06-25 18:25] LABS: Basophils % (Auto) 0.1 % (0.0-1.8); Eosinophils % (Auto) 0.1 % (0.0-4.3); Hematocrit 23.2 % (30.3-42.9); Hemoglobin 7.6 gm/dl (10.1-14.3); Lymphocytes # (Auto) 1.9 K/mm3 (1.2-5.4); Lymphocytes % (Auto) 9.7 % (13.4-35.0); Mean Corpuscular HGB Conc 33 % (30-34); Mean Corpuscular Volume 77 fl (79-97); Monocytes # (Auto) 1.5 K/mm3 (0.0-0.8); Monocytes % (Auto) 7.4 % (0.0-7.3); Platelet Count 120 K/mm3 (140-440); Red Blood Count 3.01 M/mm3 (3.65-5.03)
[2021-06-25 18:26] LABS: Red Cell Distribution Width 20.7 % (13.2-15.2)
[2021-06-25 18:38] LABS: Albumin 2.4 g/dL (3.9-5); Calcium 8.3 mg/dL (8.4-10.2)
--- NOTE | 2021-06-25 19:52 | Event Note ---
Date: 06/25/21 Chart and labs reviewed, patient doing well. Nephrology consult ordered, unable to contact [employer] Dr. Robert Kohler at [phone] at this time. She's stable overall thereforem will attempt to contact in the am.
[2021-06-26 00:38] LABS: Basophils % (Auto) 0.1 % (0.0-1.8); Hematocrit 22.1 % (30.3-42.9); Hemoglobin 7.3 gm/dl (10.1-14.3); Lymphocytes # (Auto) 2.2 K/mm3 (1.2-5.4); Lymphocytes % (Auto) 11.9 % (13.4-35.0); Mean Corpuscular HGB Conc 33 % (30-34); Mean Corpuscular Volume 77 fl (79-97); Monocytes # (Auto) 1.2 K/mm3 (0.0-0.8); Monocytes % (Auto) 6.6 % (0.0-7.3); Platelet Count 118 K/mm3 (140-440); Red Blood Count 2.88 M/mm3 (3.65-5.03)
[2021-06-26 01:01] LABS: Albumin 2.2 g/dL (3.9-5); Calcium 8.6 mg/dL (8.4-10.2)
[2021-06-26] MEDS ORDERED: SODIUM CHLORIDE 0.9% 500 ML 500 ML IV ONE (01:28)
--- NOTE | 2021-06-26 01:32 | Event Note ---
Date: 06/26/21 Chart and labs reviewed. Spoke with RN for update. No problems. Will proceed with transfusion of 1uPRBC to optimize recovery.
[2021-06-26] MEDS: SIMETHICONE 80 MG CHEW TAB PO PRN (02:08)
[2021-06-26] MEDS ORDERED: diphenhydrAMINE 25 MG CAP PO ONE (02:40)
[2021-06-26] MEDS: LACTATED RINGERS 1,000 ML IV SCH (02:55)
[2021-06-26] MEDS: ACETAMINOPHEN 500 MG TAB PO SCH ×3 (03:00→17:14)
--- NOTE | 2021-06-26 07:58 | Progress Note ---
Assessment and Plan Pt resting no complaints, fundus firm, lochia scant, incision clean and dry, dressing removed. Giles in place for accurate I&O d/t concern over urine output. Output in last 12hr has been >100/hr. Will leave giles in place for time being. Pt encouraged to shower and ambulate. Dr. Weaver consulted, will transfer to Mother/Baby unit. Customer Services Supervisor called @phone number in Dr. Johnson's note, no answer, left VM, catalyst unit operator aware. B/Ps 150s/80-90s, will start Labetalol PO BID. Plan of care discussed w/ Pt and RN, will reassess PRN. - Patient Problems (1) IUFD (intrauterine ) Current Visit: Yes Status: Acute Plan to address problem: Jacqueline's Gift initiated (2) Pre-eclampsia Current Visit: Yes Status: Acute Qualifiers: Trimester: third trimester Qualified Code(s): O14.93 - Unspecified pre- eclampsia, third trimester (3) Previous section Current Visit: No Status: Acute Plan to address problem: Advance activity as tolerated (4) Elevated serum creatinine Current Visit: Yes Status: Acute Plan to address problem: Nephrology consult on chart - called Dr. Kohler and message left continue giles cath for accurate I&O Continue strict I&Os Subjective - Subjective Date of service: 06/26/21 Principal diagnosis: s/p rpt , POD #2; IUFD, Pre eclampsia with severe features Interval history: EDC Confirmation: 07/16/2021 Past History : 2 Term Births: 1 Premature Births: 0 Living Children: 1 Para: 1 Mult. Births: 0 Prev : 1 Aborta: 0 Elect. Ab: 0 Spont. Ab: 0 Ectopics: 0 # 1 Delivery date: 2014 Weeks Gestation: 40 Delivery type: Delivery location: [facility] Sex: Male weight: 3kg Comments: arrest of dilatation and LTCS; denies complications Family History Summary: Mother - Has Family History of Diabetes - Entered On: 11/22/2020 Father - Has Family History of Diabetes - Entered On: 11/22/2020 Past Medical History: Reviewed history and no changes required: Negative Past Medical History Past Surgical History: Reviewed history and no changes required: Past Medical History Anesthesia Complications: negative Anemia: negative Autoimmune Disorder: negative Bleeding Disorder: negative Blood Transfusions: negative Breast Disease: negative Diabetes: negative Heart Disease: negative Hypertension: negative Hepatitis/Liver Disease: negative Kidney Disease/UTI: negative Neurologic/Epilepsy/Migraines: negative Phlebitis/Varicosities: negative Psychiatric: negative Pulmonary Disease/Asthma: negative Thyroid Disease: negative Hospitalizations: negative Surgery (Non-customer development manager): Abnormal PAP: negative NABEEL Exposure: negative Infertility: negative Uterine Anomaly: negative Uterine Surgery (not C/S): negative Other Gynecologic Problems: negative Infection History Hx of STD: none HIV Risk Eval: no Hepatitis B Risk Eval: low risk Personal hx. of genital herpes: no Partner hx. of genital herpes: no Rash, Viral, or Febrile illness since last LMP? no Varicella/Chicken Pox Status: Previous Disease TB Risk: no Genetic History Congenital Heart Defect: Mom: no Dad: no Sandor Disease: Mom: no Dad: no Thalassemia Mom: no Dad: no Neural Tube Defect Mom: no Dad: no Down's Syndrome Mom: no Dad: no Ebenezer-Sachs Mom: no Dad: no Sickle Cell Disease/Trait Mom: no Dad: no Hemophilia Mom: no Dad: no Muscular Dystrophy Mom: no Dad: no Cystic Fibrosis Mom: no Dad: no Neva Chorea Mom: no Dad: no Mental Retardation Mom: no Dad: no Fragile X Mom: no Dad: no Other Genetic/Chromosomal Disorder Mom: no Dad: no Child w/other defect Mom: no Dad: no Enviromental Exposures Enviromental Exposures Reviewed Xray Exposure: no Medication, drug, or alcohol use since LMP: no Chemical/Other Exposure: no Exposure to Cat Liter: no Hx of Parvovirus (Fifth Disease): no 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 Medications (reviewed today): PLUS 27-1 MG ORAL TABLET ( VIT-FE FUMARATE-FA) 1 po Current Allergies (reviewed today): No known allergies Patient reports: appetite normal, pain well controlled, flatus, no nauseated [place]: Objective - Vital Signs Latest vital signs: Vital Signs Temp Pulse Resp BP BP Pulse Ox Pulse Ox 06/26/21 07:54 68 99 06/26/21 07:49 58 L 99 06/26/21 07:44 56 L 99 06/26/21 07:39 57 L 99 06/26/21 07:34 60 99 06/26/21 07:32 99 06/26/21 07:29 66 99 06/26/21 07:24 66 100 06/26/21 07:19 66 98 06/26/21 07:14 64 153/84 98 06/26/21 07:12 99 06/26/21 07:11 97.8 F 16 99 06/26/21 07:09 69 98 06/26/21 07:04 57 L 98 06/26/21 06:59 76 99 06/26/21 06:54 64 99 06/26/21 06:53 65 92 06/26/21 06:49 61 99 06/26/21 06:44 67 98 06/26/21 06:39 62 98 06/26/21 06:34 58 L 99 06/26/21 06:29 58 L 99 06/26/21 06:24 59 L 99 06/26/21 06:19 60 98 06/26/21 06:14 58 L 99 06/26/21 06:09 60 98 06/26/21 06:04 57 L 98 06/26/21 05:59 59 L 98 06/26/21 05:54 57 L 98 06/26/21 05:49 58 L 98 06/26/21 05:44 60 99 06/26/21 05:41 98 06/26/21 05:39 71 99 06/26/21 05:34 61 98 06/26/21 05:29 65 99 06/26/21 05:24 64 98 06/26/21 05:20 79 92 06/26/21 05:19 71 99 06/26/21 05:14 77 98 06/26/21 05:09 74 98 06/26/21 05:06 73 90 06/26/21 05:04 59 L 99 06/26/21 04:59 73 98 06/26/21 04:54 63 99 06/26/21 04:49 63 98 06/26/21 04:44 62 98 06/26/21 04:39 61 99 06/26/21 04:34 60 98 06/26/21 04:29 58 L 99 06/26/21 04:24 56 L 99 06/26/21 04:19 60 99 06/26/21 04:18 65 159/78 06/26/21 04:15 98.3 F 68 18 159/78 06/26/21 04:14 58 L 99 06/26/21 04:09 58 L 99 06/26/21 04:04 54 L 99 06/26/21 03:59 63 99 06/26/21 03:54 55 L 98 06/26/21 03:49 60 98 06/26/21 03:48 98.6 F 06/26/21 03:46 65 150/86 99 06/26/21 03:45 69 18 150/86 06/26/21 03:44 58 L 99 06/26/21 03:39 58 L 98 06/26/21 03:34 58 L 99 06/26/21 03:29 58 L 99 06/26/21 03:24 58 L 98 06/26/21 03:19 74 99 06/26/21 03:15 98.2 F 65 18 140/85 97 06/26/21 03:14 63 140/85 97 06/26/21 03:09 57 L 98 06/26/21 03:04 66 99 06/26/21 02:59 67 100 06/26/21 02:56 77 86 06/26/21 02:54 72 94 06/26/21 02:49 61 100 06/26/21 02:47 64 157/75 06/26/21 02:45 98.4 F 67 18 157/75 06/26/21 02:44 67 99 06/26/21 02:39 67 99 06/26/21 02:34 62 98 06/26/21 02:30 98.3 F 64 18 140/75 06/26/21 02:29 64 99 06/26/21 02:24 68 99 06/26/21 02:19 66 99 06/26/21 02:14 73 99 06/26/21 02:09 68 99 06/26/21 02:04 67 99 06/26/21 01:59 68 99 06/26/21 01:54 64 99 06/26/21 01:49 70 99 06/26/21 01:44 73 99 06/26/21 01:39 70 99 06/26/21 01:34 78 98 06/26/21 01:30 98 06/26/21 01:29 64 99 06/26/21 01:24 68 99 06/26/21 01:19 62 100 06/26/21 01:14 62 99 06/26/21 01:09 63 99 06/26/21 01:04 63 99 06/26/21 00:59 62 99 06/26/21 00:54 64 98 06/26/21 00:49 65 99 06/26/21 00:44 64 99 06/26/21 00:39 66 99 06/26/21 00:34 61 99 06/26/21 00:29 62 99 06/26/21 00:24 67 99 06/26/21 00:19 70 100 06/26/21 00:14 80 98 06/26/21 00:09 66 97 06/26/21 00:04 67 98 06/25/21 23:59 67 98 06/25/21 23:54 63 98 06/25/21 23:49 77 97 06/25/21 23:44 65 97 06/25/21 23:41 75 154/79 06/25/21 23:40 98.6 F 64 18 154/79 99 98 06/25/21 23:39 76 100 06/25/21 23:34 77 94 06/25/21 23:29 65 99 06/25/21 23:24 62 99 06/25/21 23:19 61 99 06/25/21 23:14 63 99 06/25/21 23:09 69 99 06/25/21 23:04 64 98 06/25/21 22:59 64 98 06/25/21 22:54 64 98 06/25/21 22:49 65 98 06/25/21 22:44 64 98 06/25/21 22:39 64 98 06/25/21 22:34 62 98 06/25/21 22:29 59 L 99 06/25/21 22:24 61 99 06/25/21 22:19 58 L 99 06/25/21 22:14 63 99 06/25/21 22:09 67 100 06/25/21 22:04 67 99 06/25/21 21:59 66 100 06/25/21 21:55 98 06/25/21 21:54 79 100 06/25/21 21:49 67 100 06/25/21 21:44 80 99 06/25/21 21:39 75 100 06/25/21 21:36 18 06/25/21 21:34 71 100 06/25/21 21:29 75 100 06/25/21 21:24 78 98 06/25/21 21:19 69 100 06/25/21 21:14 64 99 06/25/21 21:09 70 99 06/25/21 21:04 73 99 06/25/21 20:59 80 99 06/25/21 20:54 72 99 06/25/21 20:49 70 100 06/25/21 20:44 75 99 06/25/21 20:39 85 100 06/25/21 20:34 78 99 06/25/21 20:29 70 100 06/25/21 20:24 67 100 06/25/21 20:19 65 100 06/25/21 20:14 72 99 06/25/21 20:09 70 100 06/25/21 20:04 64 98 06/25/21 19:59 70 100 06/25/21 19:54 80 96 06/25/21 19:49 65 99 06/25/21 19:44 60 140/79 98 06/25/21 19:43 98.8 F 62 18 140/79 98 06/25/21 19:40 98 06/25/21 19:39 70 100 06/25/21 19:34 68 100 06/25/21 19:29 66 99 06/25/21 19:24 68 98 06/25/21 19:19 69 98 06/25/21 19:14 66 98 06/25/21 19:09 73 99 06/25/21 19:04 68 99 06/25/21 18:59 84 98 06/25/21 18:54 76 98 06/25/21 18:49 73 98 06/25/21 18:44 85 99 06/25/21 18:39 84 97 06/25/21 18:34 77 98 06/25/21 18:29 73 98 06/25/21 18:24 77 98 06/25/21 18:19 82 99 06/25/21 18:14 76 98 06/25/21 18:09 78 99 06/25/21 18:04 81 98 06/25/21 17:59 81 99 06/25/21 17:57 85 38 L 06/25/21 17:53 93 H 98 06/25/21 17:48 79 98 06/25/21 17:46 98.2 F 18 99 06/25/21 17:43 77 99 06/25/21 17:38 83 98 06/25/21 17:36 90 141/77 06/25/21 17:33 82 98 06/25/21 17:28 78 96 06/25/21 17:23 72 97 06/25/21 17:18 68 97 06/25/21 17:13 69 97 06/25/21 17:08 69 98 06/25/21 17:03 71 98 06/25/21 16:58 78 97 06/25/21 16:53 79 97 06/25/21 16:48 69 97 06/25/21 16:43 75 98 06/25/21 16:38 75 98 06/25/21 16:36 73 116/61 06/25/21 16:33 84 99 06/25/21 16:28 91 H 98 06/25/21 16:23 84 99 06/25/21 16:18 81 98 06/25/21 16:13 80 99 06/25/21 16:08 91 H 99 06/25/21 16:03 85 98 06/25/21 15:58 75 98 06/25/21 15:53 88 99 06/25/21 15:48 93 H 99 06/25/21 15:43 96 H 98 06/25/21 15:38 78 98 06/25/21 15:36 75 129/63 06/25/21 15:33 76 98 06/25/21 15:28 76 98 06/25/21 15:23 94 H 98 06/25/21 15:21 98.4 F 18 98 06/25/21 15:18 80 98 06/25/21 15:13 83 98 06/25/21 15:08 76 98 06/25/21 15:03 79 98 06/25/21 14:58 81 99 06/25/21 14:53 87 98 06/25/21 14:48 81 99 06/25/21 14:43 85 99 06/25/21 14:38 79 98 06/25/21 14:36 82 139/62 06/25/21 14:33 76 99 06/25/21 14:28 80 99 06/25/21 14:23 87 98 06/25/21 14:18 81 99 06/25/21 14:13 80 100 06/25/21 14:08 92 H 100 06/25/21 14:05 97.9 F 20 99 06/25/21 14:03 110 H 99 06/25/21 13:58 74 141/73 96 06/25/21 13:53 77 98 06/25/21 13:48 69 97 06/25/21 13:43 73 97 06/25/21 13:38 71 98 06/25/21 13:33 73 96 06/25/21 13:28 72 97 06/25/21 13:23 73 97 06/25/21 13:18 78 98 06/25/21 13:13 72 98 06/25/21 13:08 75 98 06/25/21 13:03 87 98 06/25/21 12:58 94 H 98 06/25/21 12:53 84 98 06/25/21 12:48 82 98 06/25/21 12:43 80 98 06/25/21 12:38 77 98 06/25/21 12:33 93 H 98 06/25/21 12:28 72 98 06/25/21 12:23 73 98 06/25/21 12:18 75 97 06/25/21 12:13 72 97 06/25/21 12:08 72 97 06/25/21 12:03 76 97 06/25/21 11:58 77 97 06/25/21 11:53 98.2 F 72 18 99 06/25/21 11:48 68 98 06/25/21 11:43 69 97 06/25/21 11:38 88 96 06/25/21 11:36 75 150/69 06/25/21 11:33 77 97 06/25/21 11:28 67 97 06/25/21 11:23 86 98 06/25/21 11:18 74 97 06/25/21 11:13 73 97 06/25/21 11:08 71 97 06/25/21 11:03 71 98 06/25/21 10:58 73 97 06/25/21 10:53 78 98 06/25/21 10:48 80 98 06/25/21 10:43 81 98 06/25/21 10:38 82 99 06/25/21 10:36 74 121/70 06/25/21 10:33 77 98 06/25/21 10:28 83 98 06/25/21 10:23 80 98 06/25/21 10:18 79 99 06/25/21 10:13 83 98 06/25/21 10:08 105 H 99 06/25/21 10:03 77 98 06/25/21 09:58 88 99 06/25/21 09:53 110 H 100 06/25/21 09:48 88 99 06/25/21 09:43 94 H 99 06/25/21 09:38 82 99 06/25/21 09:36 93 H 145/83 06/25/21 09:33 90 99 06/25/21 09:28 92 H 99 06/25/21 09:23 99 H 99 06/25/21 09:18 86 99 06/25/21 09:13 79 98 06/25/21 09:08 85 99 06/25/21 09:03 84 98 06/25/21 08:58 94 H 98 06/25/21 08:53 95 H 99 06/25/21 08:48 73 98 06/25/21 08:43 77 98 06/25/21 08:38 75 97 06/25/21 08:36 75 128/63 06/25/21 08:33 78 98 06/25/21 08:28 79 98 06/25/21 08:23 74 97 06/25/21 08:18 82 98 06/25/21 08:13 78 98 06/25/21 08:08 83 98 06/25/21 08:03 85 98 06/25/21 07:58 91 H 99 Intake and Output 06/25/21 06/25/21 06/26/21 15:59 23:59 07:59 Intake Total 535.031 0285.25 941.667 Output Total 225 1100 1100 Balance 664.583 -73.75 -158.333 Intake: IV 889.583 906.25 941.667 Lactated Ringers 1,000 ml 889.583 906.25 941.667 @ 125 mls/hr IV DIRECT HYACINTH Rx#:[id number] Oral 120 Blood Product 0 Leukoreduced Red Blood 0 Cells Unit [id number] Output: Urine 225 1100 1100 Indwelling Catheter 150 1100 1100 Uretheral (Giles) 75 Other: Total, Intake Amount 120 Total, Output Amount 100 250 200 - Exam Breasts: Present: normal Cardiovascular: Present: Regular rate Lungs: Present: Clear to auscultation, Normal air movement Abdomen: Present: normal appearance, soft Vulva: both: normal Uterus: Present: normal, firm, fundal height below umbilicus Extremities: Present: edema Deep Tendon Reflex Grade: Normal +2 Incision: Present: normal, dry, intact - Labs Labs: Abnormal lab results 06/24/21 06/25/21 06/25/21 Range/Units 13:40 12:30 12:30 WBC 19.5 H (4.5-11.0) K/mm3 RBC 3.21 L (3.65-5.03) M/mm3 Hgb 7.9 L (10.1-14.3) gm/dl Hct 24.4 L (30.3-42.9) % MCV 76 L (79-97) fl MCH 25 L (28-32) pg RDW 20.2 H (13.2-15.2) % Plt Count 132 L (140-440) K/mm3 Lymph % (Auto) 8.0 L (13.4-35.0) % [place] % (Auto) (0.0-7.3) % [place] # (Auto) 1.1 H (0.0-0.8) K/mm3 Seg Neutrophils % 86.3 H (40.0-70.0) % Seg Neutrophils # 16.9 H (1.8-7.7) K/mm3 D-Dimer (0-234) ng/mlDDU Sodium 136 L (137-145) mmol/L Carbon Dioxide 16 L (22-30) mmol/L BUN 25 H (7-17) mg/dL Creatinine 2.6 H (0.6-1.2) mg/dL Glucose 127 H (65-100) mg/dL Calcium (8.4-10.2) mg/dL Alkaline Phosphatase 162 H (35-129) units/L Lactate Dehydrogenase 491 H (91-180) units/L Total Protein 4.9 L (6.3-8.2) g/dL Albumin 2.4 L (3.9-5) g/dL Crossmatch See Detail 06/25/21 06/25/21 06/25/21 Range/Units 12:30 18:00 18:00 WBC 20.0 H (4.5-11.0) K/mm3 RBC 3.01 L (3.65-5.03) M/mm3 Hgb 7.6 L (10.1-14.3) gm/dl Hct 23.2 L (30.3-42.9) % MCV 77 L (79-97) fl MCH 25 L (28-32) pg RDW 20.7 H (13.2-15.2) % Plt Count 120 L (140-440) K/mm3 Lymph % (Auto) 9.7 L (13.4-35.0) % [place] % (Auto) 7.4 H (0.0-7.3) % [place] # (Auto) 1.5 H (0.0-0.8) K/mm3 Seg Neutrophils % 82.7 H (40.0-70.0) % Seg Neutrophils # 16.6 H (1.8-7.7) K/mm3 D-Dimer 1974.59 H (0-234) ng/mlDDU Sodium (137-145) mmol/L Carbon Dioxide 18 L (22-30) mmol/L BUN 29 H (7-17) mg/dL Creatinine 2.6 H (0.6-1.2) mg/dL Glucose 128 H (65-100) mg/dL Calcium 8.3 L (8.4-10.2) mg/dL Alkaline Phosphatase 150 H (35-129) units/L Lactate Dehydrogenase 487 H (91-180) units/L Total Protein 4.9 L (6.3-8.2) g/dL Albumin 2.4 L (3.9-5) g/dL Crossmatch 06/26/21 06/26/21 Range/Units 00:12 00:12 WBC 18.6 H (4.5-11.0) K/mm3 RBC 2.88 L (3.65-5.03) M/mm3 Hgb 7.3 L (10.1-14.3) gm/dl Hct 22.1 L (30.3-42.9) % MCV 77 L (79-97) fl MCH 25 L (28-32) pg RDW 20.0 H (13.2-15.2) % Plt Count 118 L (140-440) K/mm3 Lymph % (Auto) 11.9 L (13.4-35.0) % [place] % (Auto) (0.0-7.3) % [place] # (Auto) 1.2 H (0.0-0.8) K/mm3 Seg Neutrophils % 81.4 H (40.0-70.0) % Seg Neutrophils # 15.2 H (1.8-7.7) K/mm3 D-Dimer (0-234) ng/mlDDU Sodium 136 L (137-145) mmol/L Carbon Dioxide 17 L (22-30) mmol/L BUN 32 H (7-17) mg/dL Creatinine 2.7 H (0.6-1.2) mg/dL Glucose 117 H (65-100) mg/dL Calcium (8.4-10.2) mg/dL Alkaline Phosphatase 142 H (35-129) units/L Lactate Dehydrogenase (91-180) units/L Total Protein 4.7 L (6.3-8.2) g/dL Albumin 2.2 L (3.9-5) g/dL Crossmatch
--- NOTE | 2021-06-26 09:04 | Consultation ---
History of Present Illness - Reason for Consult Consult date: 06/26/21 acute renal failure - History of Present Illness This is a 35 y/o F who presented to ED with c/o lower back pain and abdominal tightening. US showed no FHT. OB-X RAY PHYSICIAN consulted, s/p primary low transverse section with complete placental abruption with estimated blood loss of 1014 ml on 06/24/21. Pt found to have abnormal renal function. We were consulted to evaluate this pt who has LIAM. On admission, SCr level was 1.4, worsened to 2.7 today. Pt denies no known hx of kidney problems. at bedside, updated on renal plan Past History Social history: no significant social history Medications and Allergies Allergies Allergy/AdvReac Type Severity Reaction Status Date / Time No Known Allergies Allergy Unverified 06/24/21 12:50 Home Medications Medication Instructions Recorded Confirmed Last Taken Type Acetaminophen 500 mg PO Q6HR #30 capsule 06/24/21 Unknown Rx Docusate Sodium [Colace] 100 mg PO BID #60 capsule 06/24/21 Unknown Rx Ferrous Sulfate [Feosol 325 MG tab] 325 mg PO QDAY #30 tablet 06/24/21 Unknown Rx Oxycodone HCl 5 mg PO Q6HR PRN #20 capsule 06/24/21 Unknown Rx Vitamin 1 tab PO DAILY 06/24/21 06/24/21 06/21/21 History Active Meds: Active Medications Acetaminophen (Acetaminophen 500 Mg Tab) 1,000 mg PO Q6H [facility] Last Admin: 06/26/21 03:00 Dose: 1,000 mg Documented by: Butorphanol Tartrate (Butorphanol 2 Mg/1 Ml Inj) 1 mg IV Q2H PRN PRN Reason: Moderate pain (4-6) Butorphanol Tartrate (Butorphanol 2 Mg/1 Ml Inj) 2 mg IV Q2H PRN PRN Reason: Severe Pain (7-10) Ephedrine Sulfate (Ephedrine Sulfate 50 Mg/1 Ml Inj) 10 mg IV Q5M PRN PRN Reason: Blood Pressure Last Admin: 06/24/21 20:55 Dose: 10 mg Documented by: Ferrous Sulfate (Ferrous Sulfate 325 Mg Tab) 325 mg PO BID [facility] Last Admin: 06/25/21 21:52 Dose: 325 mg Documented by: Oxytocin/Sodium Chloride (Pitocin/Ns 30 Unit/500ml) 30 units in 500 mls @ 40 mls/hr IV TITR HYACINTH; Protocol Magnesium Sulfate (Magnesium Sulfate 40gm/1000ml) 40 gm in 1,000 mls @ 50 mls/hr IV DIRECT HYACINTH Last Admin: 06/24/21 14:41 Dose: 2 gm/hr, 50 mls/hr Documented by: Oxytocin/Sodium Chloride (Pitocin/Ns 30 Unit/500ml) 30 units in 500 mls @ 40 ml s/hr IV TITR HYACINTH; Protocol Sodium Chloride (Nacl 0.9% 500 Ml) 500 mls @ 50 mls/hr IV DIRECT HYACINTH Lactated Ringer's (Lactated Ringers) 1,000 mls @ 125 mls/hr IV DIRECT HYACINTH Last Admin: 06/26/21 02:55 Dose: 125 mls/hr Documented by: Labetalol HCl (Labetalol 200 Mg Tab) 200 mg PO BID HYACINTH Magnesium Hydroxide (Magnesium Hydroxide (Mom) Oral Liqd Udc) 30 ml PO QHS PRN PRN Reason: Constip Unrelieved By Senna Misoprostol (Misoprostol 200 Mcg Tab) 800 mcg MO ONCE PRN PRN Reason: Uterine Bleeding Multi-Ingredient Ointment (Lanolin/Zinc/Dimethicone (Lansinoh) 7 Gm) 1 applic TP PRN PRN PRN Reason: dryness/cracking Multivitamins/Iron/Calcium ( [id number] Fumarate-Folic Acid Vit Tab) 1 each PO QDAY HYACINTH Naloxone HCl (Naloxone 0.4 Mg/1 Ml Inj) 0.1 mg IV Q2MIN PRN PRN Reason: Res Rate </= 8 or 02 SAT < 92% Ondansetron HCl (Ondansetron 4 Mg/2 Ml Inj) 4 mg IV Q8H PRN PRN Reason: Nausea And Vomiting Oxycodone HCl (Oxycodone 5 Mg Tab) 5 mg PO Q6H PRN PRN Reason: Pain, Moderate (4-6) Promethazine HCl (Promethazine 25 Mg Rect Supp) 25 mg MO Q6H PRN PRN Reason: N/V IF NPO AND NO IV ACCESS Senna (Sennosides 8.6 Mg Tab) 17.2 mg PO QHS PRN PRN Reason: Constipation Simethicone (Simethicone 80 Mg Chew Tab) 80 mg PO Q6H PRN PRN Reason: Gas pain Last Admin: 06/26/21 02:08 Dose: 80 mg Documented by: Sodium Chloride (Sodium Chloride 0.9% 10 Ml Flush Syringe) 10 ml IV PRN NR Stop: 06/26/21 23:59 Witch Meghann/Glycerin (Witch Meghann/ Glycerin Pad) 1 each TP PRN PRN PRN Reason: Hemorrhoids/cleansing/soothing Review of Systems Constitutional: fatigue Cardiovascular: no chest pain, no shortness of breath Respiratory: no shortness of breath Gastrointestinal: constipation, no nausea, no vomiting, no diarrhea Neurological: no headaches Exam - Vital Signs Vital signs: Vital Signs Pulse Pulse Ox 92 H 97 06/24/21 12:53 06/24/21 12:53 - General Appearance General appearance: well-developed EENT: ATNC Neck: Present: neck supple Respiratory: Clear to Ascultation Heart: regular, S1S2 Gastrointestinal: Present: normoactive bowel sounds Integumentary: warm and dry Neurologic: alert and oriented x3 Results - Lab Results 06/26/21 09:22 06/26/21 00:12 Most recent lab results Calcium 8.6 mg/dL (8.4-10.2) 06/26/21 00:12 Magnesium 3.90 mg/dL (1.7-2.3) H 06/24/21 18:47 Assessment and Plan Assessment: IUFD Pre-eclampsia Acute Kidney Injury possibly 2/2 prerenal Plan: -Renal function reviewed, SCr level was 2.7 today, yesterday's SCr level was 2.6, non-oliguric -Ordered to receive LR infusion at 125 ml/hr -Repeat BMP at 1500 -S/p 0.9% NS boluses -On labetalol 200 mg po BID, adjust as needed -Obtain urine lytes, protein, eosinophils -Obtain renal ultrasound -Renally dose meds -Pedroza Catheter: Yes -Intake= 2857 ml Output= 2225 ml (Net= 632 ml) -Renal plan reviewed by Dr Oliveros
[2021-06-26 10:13] LABS: Hematocrit 29.1 % (30.3-42.9); Hemoglobin 9.6 gm/dl (10.1-14.3); Mean Corpuscular HGB Conc 33 % (30-34); Mean Corpuscular Volume 79 fl (79-97); Platelet Count 136 K/mm3 (140-440); Red Blood Count 3.69 M/mm3 (3.65-5.03)
[2021-06-26 10:26] LABS: Albumin 2.5 g/dL (3.9-5); Calcium 8.6 mg/dL (8.4-10.2)
[2021-06-26] MEDS: FERROUS SULFATE 325 MG TAB PO SCH ×2 (11:20→21:37)
[2021-06-26] MEDS: PRENATAL VIT27-FE FUMARATE-FOLIC ACID VIT TAB PO SCH (11:21)
--- NOTE | 2021-06-26 12:10 | Ultrasound Report ---
ULTRASOUND RENAL INDICATION / CLINICAL INFORMATION: LIAM. COMPARISON: None available. FINDINGS: RIGHT KIDNEY: Length = 13.2 cm. - Echogenicity: Increased. - Cortical Thickness: Normal. - Hydronephrosis: None. - Cyst / Mass: None. - Stones: None seen. LEFT KIDNEY: Length = 11.8 cm. - Echogenicity: Increased. - Cortical Thickness: Normal. - Hydronephrosis: None. - Cyst / Mass: None. - Stones: None seen. URINARY BLADDER: Not visualized due to overlying incision and Pedroza catheter. FREE FLUID: None. ADDITIONAL FINDINGS: None. IMPRESSION: 1. Bilateral increased cortical echogenicity, ultimately nonspecific but can be seen with medical shreyas al disease. Scribed by: Cielo Raman RDMS, RVT Scribed: 06/26/2021 10:46 AM I have reviewed the images, agree with this report, and edited this report as needed. Signer Name: Nishant Cramer MD Signed: 06/26/2021 12:05 PM Workstation Name: [id number]
[2021-06-26 16:58] LABS: Calcium 8.2 mg/dL (8.4-10.2)
[2021-06-26 18:22] LABS: Creatinine,Urine 34.4 mg/dL (0.1-20.0); Protein/Creatinine Ratio,Urine 1.34
[2021-06-26] MEDS: oxyCODONE 5 MG TAB PO PRN (21:37)
[2021-06-26 22:53] LABS: Anisocytosis 1+; Total Cells Counted 100
[2021-06-26 22:54] LABS: Burr Cells 1+
[2021-06-26 22:55] LABS: Schistocytes Few
[2021-06-26 22:56] LABS: Platelet Estimate Consistent w Auto
[2021-06-27] MEDS: ACETAMINOPHEN 500 MG TAB PO SCH ×5 (00:35→18:04)
[2021-06-27] MEDS: FERROUS SULFATE 325 MG TAB PO SCH ×2 (09:13→21:32)
[2021-06-27] MEDS: PRENATAL VIT27-FE FUMARATE-FOLIC ACID VIT TAB PO SCH (09:13)
--- NOTE | 2021-06-27 09:17 | Progress Note ---
Assessment and Plan - Patient Problems (1) delivery delivered Current Visit: Yes Status: Acute Plan to address problem: -stable from post op standpoint -cont post op care (2) Elevated serum creatinine Current Visit: Yes Status: Acute Plan to address problem: -Nephrology team following -will await further recommendations (3) IUFD (intrauterine ) Current Visit: Yes Status: Acute (4) Pre-eclampsia Current Visit: Yes Status: Acute Qualifiers: Trimester: third trimester Qualified Code(s): O14.93 - Unspecified pre- eclampsia, third trimester Plan to address problem: -cont labetalol 200bid for now. Blood pressures not in severe ranges at his time Subjective - Subjective Date of service: 06/27/21 Principal diagnosis: s/p rpt , POD #3; IUFD, Pre eclampsia with severe features;LIAM Interval history: Pt and state no c/o this am. States pain is well controlled. I d/w both that from a surgical standpoint she is doing well and ready for d/c but that we are awaiting recommendations from nephrology for LIAM. Both expressed understanding. I advised that the findings of the sonogram of the kidneys would be d/w them by the tripe scraper. Again expressed understanding and states qu estions regarding follow up after discharge. I reassured then that they would have follow up with us as well as renal team upon d/c home. They expressed understanding. Patient reports: appetite normal, voiding normally (cath in place and draining clear urine at bedside), pain well controlled, no dizzy ambulation Objective - Vital Signs Latest vital signs: Vital Signs Temp Pulse Resp BP Pulse Ox Pulse Ox 06/27/21 07:35 98.1 F 73 18 147/81 96 06/26/21 23:39 97.9 F 69 16 130/68 99 06/26/21 22:30 100 06/26/21 21:37 18 06/26/21 21:33 64 119/64 99 06/26/21 19:30 99 06/26/21 17:52 100 06/26/21 16:54 100 06/26/21 16:38 97.8 F 66 16 145/79 98 06/26/21 14:06 100 06/26/21 12:30 97.9 F 71 20 159/88 100 06/26/21 11:28 100 06/26/21 11:21 62 147/97 Intake and Output 06/26/21 06/27/21 06/27/21 22:59 06:59 14:59 Intake Total 400 500 Output Total 1600 3700 Balance -1200 -3200 Intake: Oral 400 500 Output: Urine 1600 3700 Indwelling 500 1850 Indwelling Catheter 1100 1850 Other: Total, Intake Amount 200 200 Total, Output Amount 1100 400 - Exam Abdomen: Present: normal appearance, soft. Absent: distention, tenderness, guarding Uterus: Present: fundal height below umbilicus Extremities: Present: normal. Absent: tenderness, edema Incision: Present: normal, dry, intact (strestrips in place open to air) - Labs Labs: Abnormal lab results 06/26/21 06/26/21 06/26/21 Range/Units 09:22 09:22 16:10 WBC 16.5 H (4.5-11.0) K/mm3 Hgb 9.6 L (10.1-14.3) gm/dl Hct 29.1 L D (30.3-42.9) % MCH 26 L (28-32) pg RDW 21.0 H (13.2-15.2) % Plt Count 136 L (140-440) K/mm3 Seg Neuts % (Manual) 87.0 H (40.0-70.0) % Lymphocytes % (Manual) 12.0 L (13.4-35.0) % Nucleated RBC % 1.0 H (0.0-0.9) % Seg Neutrophils # Man 14.4 H (1.8-7.7) K/mm3 Chloride 107.9 H 109.9 H (98-107) mmol/L Carbon Dioxide 18 L 18 L (22-30) mmol/L BUN 33 H 34 H (7-17) mg/dL Creatinine 2.5 H 2.5 H (0.6-1.2) mg/dL Glucose 102 H (65-100) mg/dL Calcium 8.2 L (8.4-10.2) mg/dL Phosphorus 5.50 H (2.5-4.5) mg/dL Alkaline Phosphatase 152 H (35-129) units/L Total Protein 5.4 L (6.3-8.2) g/dL Albumin 2.5 L (3.9-5) g/dL Urine Creatinine (0.1-20.0) mg/dL Urine Total Protein (5-11.8) mg/dL 06/26/21 Range/Units 17:45 WBC (4.5-11.0) K/mm3 Hgb (10.1-14.3) gm/dl Hct (30.3-42.9) % MCH (28-32) pg RDW (13.2-15.2) % Plt Count (140-440) K/mm3 Seg Neuts % (Manual) (40.0-70.0) % Lymphocytes % (Manual) (13.4-35.0) % Nucleated RBC % (0.0-0.9) % Seg Neutrophils # Man (1.8-7.7) K/mm3 Chloride (98-107) mmol/L Carbon Dioxide (22-30) mmol/L BUN (7-17) mg/dL Creatinine (0.6-1.2) mg/dL Glucose (65-100) mg/dL Calcium (8.4-10.2) mg/dL Phosphorus (2.5-4.5) mg/dL Alkaline Phosphatase (35-129) units/L Total Protein (6.3-8.2) g/dL Albumin (3.9-5) g/dL Urine Creatinine 34.4 H (0.1-20.0) mg/dL Urine Total Protein 46 H (5-11.8) mg/dL
[2021-06-27] MEDS: LACTATED RINGERS 1,000 ML IV SCH ×2 (11:25→18:04)
--- NOTE | 2021-06-27 12:39 | Event Note ---
Date: 06/27/21 (EPDS score 11) Received a call from RN that patient's depression score was 11. Mental health consult placed.
--- NOTE | 2021-06-27 14:15 | Progress Note ---
Assessment and Plan Assessment: IUFD Pre-eclampsia Acute Kidney Injury possibly 2/2 prerenal, ? CKD, no obstruction Plan: -Labs pending today -On LR infusion at 125 ml/hr -Monitor electrolytes closely, replete as needed -On labetalol 200 mg po BID, adjust as needed -Calculated protein to cr ratio 1.3 g, no eosinophils -Renal US showed possible signs of CKD, no hydronephrosis -Renally dose meds -Pedroza Catheter: Yes -Intake= 1900 ml Output= 6500 ml (Net= -4650 ml) -Renal plan reviewed by Dr Oliveros Subjective Date of service: 06/27/21 Principal diagnosis: s/p rpt , POD #3; IUFD, Pre eclampsia with severe features;LIAM Interval history: Pt seen in bed, flat affect, pt denies shortness of breath, nausea, vomiting, or pain. No acute distress, no family at bedside Objective - Vital Signs Vital signs: Vital Signs - 12hr 06/27/21 06/27/21 06/27/21 07:35 08:00 12:02 Temperature 98.1 F 98 F Pulse Rate 73 77 Respiratory 18 18 Rate Blood Pressure 147/81 Blood Pressure 160/83 [Right] O2 Sat by Pulse 96 96 Oximetry O2 Sat by Pulse 98 Oximetry [ Bilateral] 06/27/21 12:10 Temperature 98.0 F Pulse Rate 76 Respiratory 18 Rate Blood Pressure 148/74 Blood Pressure [Right] O2 Sat by Pulse 96 Oximetry O2 Sat by Pulse Oximetry [ Bilateral] - General Appearance General appearance: other (awake) EENT: ATNC Neck: no JVD Respiratory: Present: Clear to Ascultation Cardiology: regular, S1S2 Gastrointestinal: normoactive bowel sounds Integumentary: warm and dry Neurologic: alert and oriented x3 Psychiatric: other (flat affect) - Lab 06/26/21 09:22 06/26/21 16:10 Most recent lab results Calcium 8.2 mg/dL (8.4-10.2) L 06/26/21 16:10 Phosphorus 5.50 mg/dL (2.5-4.5) H 06/26/21 16:10 Magnesium 3.90 mg/dL (1.7-2.3) H 06/24/21 18:47 Urine Creatinine 34.4 mg/dL (0.1-20.0) H 06/26/21 17:45 Urine Sodium 83 mmol/L 06/26/21 17:45 Urine Total Protein 46 mg/dL (5-11.8) H 06/26/21 17:45 Medications & Allergies - Medications Allergies/Adverse Reactions: Allergies No Known Allergies Allergy (Unverified 06/24/21 12:50) Home Medications: Home Medications Medication Instructions Recorded Confirmed Last Taken Type Acetaminophen 500 mg PO Q6HR #30 capsule 06/24/21 Unknown Rx Docusate Sodium [Colace] 100 mg PO BID #60 capsule 06/24/21 Unknown Rx Ferrous Sulfate [Feosol 325 MG tab] 325 mg PO QDAY #30 tablet 06/24/21 Unknown Rx Oxycodone HCl 5 mg PO Q6HR PRN #20 capsule 06/24/21 Unknown Rx Vitamin 1 tab PO DAILY 06/24/21 06/24/21 06/21/21 History Active Medications: Generic Name Dose Route Start Last Admin Trade Name Freq PRN Reason Stop Dose Admin Acetaminophen 1,000 mg 06/25/21 10:00 06/27/21 11:25 Acetaminophen 500 Mg Tab PO 1,000 mg Q6H HYACINTH Administration Butorphanol Tartrate 1 mg 06/25/21 09:00 Butorphanol 2 Mg/1 Ml Inj IV Q2H PRN Moderate pain (4-6) Butorphanol Tartrate 2 mg 06/25/21 09:00 Butorphanol 2 Mg/1 Ml Inj IV Q2H PRN Severe Pain (7-10) Ephedrine Sulfate 10 mg 06/24/21 20:54 06/24/21 20:55 Ephedrine Sulfate 50 Mg/1 Ml Inj IV 10 mg Q5M PRN Administration Blood Pressure Ferrous Sulfate 325 mg 06/24/21 22:00 06/27/21 09:13 Ferrous Sulfate 325 Mg Tab PO 325 mg BID HYACINTH Administration Oxytocin/Sodium Chloride 30 units in 500 mls @ 40 mls/hr 06/24/21 14:00 Pitocin/Ns 30 Unit/500ml IV TITR HYACINTH Protocol Magnesium Sulfate 40 gm in 1,000 mls @ 50 mls/hr 06/24/21 14:00 06/24/21 14:41 Magnesium Sulfate 40gm/1000ml IV 2 gm/hr DIRECT HYACINTH 50 mls/hr Administration 2 GM/HR Oxytocin/Sodium Chloride 30 units in 500 mls @ 40 mls/hr 06/24/21 20:02 Pitocin/Ns 30 Unit/500ml IV TITR HYACINTH Protocol Sodium Chloride 500 mls @ 50 mls/hr 06/24/21 22:00 Nacl 0.9% 500 Ml IV DIRECT HYACINTH Lactated Ringer's 1,000 mls @ 125 mls/hr 06/25/21 05:00 06/27/21 11:25 Lactated Ringers IV 125 mls/hr DIRECT HYACINTH Administration Labetalol HCl 200 mg 06/26/21 10:00 06/27/21 09:13 Labetalol 200 Mg Tab PO 200 mg BID HYACINTH Administration Magnesium Hydroxide 30 ml 06/24/21 20:02 Magnesium Hydroxide (Mom) Oral Liqd Udc PO QHS PRN Constip Unrelieved By Senna Misoprostol 800 mcg 06/24/21 13:11 Misoprostol 200 Mcg Tab MO ONCE PRN Uterine Bleeding Multi-Ingredient Ointment 1 applic 06/24/21 20:02 Lanolin/Zinc/Dimethicone (Lansinoh) 7 Gm TP PRN PRN dryness/cracking Multivitamins/Iron/Calcium 1 each 06/25/21 10:00 06/27/21 09:13 [id number] Fumarate-Folic Acid Vit Tab PO 1 each QDAY HYACINTH Administration Naloxone HCl 0.1 mg 06/24/21 20:02 Naloxone 0.4 Mg/1 Ml Inj IV Q2MIN PRN Res Rate </= 8 or 02 SAT < 92% Ondansetron HCl 4 mg 06/24/21 20:02 Ondansetron 4 Mg/2 Ml Inj IV Q8H PRN Nausea And Vomiting Oxycodone HCl 5 mg 06/25/21 09:00 06/26/21 21:37 Oxycodone 5 Mg Tab PO 5 mg Q6H PRN Administration Pain, Moderate (4-6) Promethazine HCl 25 mg 06/24/21 20:02 Promethazine 25 Mg Rect Supp MO Q6H PRN N/V IF NPO AND NO IV ACCESS Senna 17.2 mg 06/24/21 20:02 Sennosides 8.6 Mg Tab PO QHS PRN Constipation Simethicone 80 mg 06/24/21 20:02 06/26/21 02:08 Simethicone 80 Mg Chew Tab PO 80 mg Q6H PRN Administration Gas pain Witch Meghann/Glycerin 1 each 06/24/21 20:02 Witch Meghann/ Glycerin Pad TP PRN PRN Hemorrhoids/cleansing/soothing
[2021-06-27 15:31] LABS: Hemoglobin 8.5 gm/dl (10.1-14.3); Mean Corpuscular HGB Conc 33 % (30-34); Mean Corpuscular Volume 80 fl (79-97); Platelet Count 163 K/mm3 (140-440); Red Blood Count 3.27 M/mm3 (3.65-5.03)
[2021-06-27 15:37] LABS: Red Cell Distribution Width 21.6 % (13.2-15.2)
[2021-06-27 15:52] LABS: Calcium 8.4 mg/dL (8.4-10.2)
[2021-06-27] MEDS: oxyCODONE 5 MG TAB PO PRN ×2 (16:57→22:01)
[2021-06-28] MEDS: ACETAMINOPHEN 500 MG TAB PO SCH ×6 (00:42→23:19)
[2021-06-28] MEDS: LACTATED RINGERS 1,000 ML IV SCH ×2 (01:43→10:08)
[2021-06-28] MEDS: oxyCODONE 5 MG TAB PO PRN ×3 (05:32→23:21)
[2021-06-28 07:59] LABS: Hematocrit 25.4 % (30.3-42.9); Hemoglobin 8.2 gm/dl (10.1-14.3); Mean Corpuscular HGB Conc 32 % (30-34); Mean Corpuscular Volume 80 fl (79-97); Platelet Count 175 K/mm3 (140-440); Red Blood Count 3.17 M/mm3 (3.65-5.03)
[2021-06-28 08:09] LABS: Red Cell Distribution Width 21.2 % (13.2-15.2)
[2021-06-28 08:16] LABS: Calcium 8.2 mg/dL (8.4-10.2)
--- NOTE | 2021-06-28 08:57 | Consultation ---
History of Present Illness - Reason for Consult Consult date: 06/28/21 Reason for consult: demise - History of Present Psychiatric Illness Robyn Everett is a 35y/o female patient who had a stillbirth. During my evaluation of the patient today, she is awake, a/o x 3. She is calm and cooperative. She is polite. She says she feels okay. Her spouse is at bedside. She gives me permission to speak in front of him. She denies SI/HI. She says "no, I have a son at home." Sh denies any fear or feeling of endangerment. She denies hallucinations of any kind or having any type of psych history. She denies ever being on any psych medications. The patient denies any illicit drug use, alcohol or nicotine. She says "I'm okay." Discussed seeing a therapist or out patient psychiatrist. The patient says she didn't want it. 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 Access to guns/weapons: Denies Education: college History of Abuse: Denies Legal History: Denies REVIEW OF SYSTEMS Constitutional: Negative for weight loss ENT: Negative for stridor Respiratory: Negative for cough or hemoptysis All other systems reviewed and are negative MENTAL STATUS EXAMINATION General Appearance and Behavior: Age appropriate, good hygiene, wearing appropriate clothes, calm, cooperative, polite and pleasant Cooperation: cooperative Psychomotor Behavior: unremarkable and within normal limits Mood: okay Affect and affective range: congruent with mood Thought Process: Goal directed Thought Content: None Speech: Normal volume, Regular rate and rhythm, Suicidal Ideation: Denies Homicidal Ideation:Denies Hallucinations: Denies Delusions: None elicited Impulse Control: Limited Insight and Judgment: Limited Memory: Normal, Attention: Normal Orientation: Alert, oriented Assessment and Plan (1)Mental Health Evaluation Treatment plan No medications at this time Risks, benefits and alternatives of medications discussed with the patient, questions answered and consent obtained from patient. PSYCHOTHERAPY: Supportive psychotherapy provided MEDICAL: Per primary team DELIRIUM PRECAUTIONS: Please re-orient patient frequently, keep lights on during the day, and minimize benzodiazepines and opiates as these medications could worsen patient's confusion. TECHNICAL DOCUMENTATION SPECIALIST: Defer to primary Disposition: Do not recommend acute psychiatric inpatient treatment. The patient understands that if suicidal thoughts are to reoccur he is to seek immediate assistance. Fitness Consultant to give the patient resources for outpatient psychiatry Will sign off Thank you for the consult. Please contact with any questions and/or concerns. Case staffed with Dr. Narvaez Medications and Allergies Allergies Allergy/AdvReac Type Severity Reaction Status Date / Time No Known Allergies Allergy Unverified 06/24/21 12:50 Home Medications Medication Instructions Recorded Confirmed Last Taken Type Acetaminophen 500 mg PO Q6HR #30 capsule 06/24/21 Unknown Rx Docusate Sodium [Colace] 100 mg PO BID #60 capsule 06/24/21 Unknown Rx Ferrous Sulfate [Feosol 325 MG tab] 325 mg PO QDAY #30 tablet 06/24/21 Unknown Rx Oxycodone HCl 5 mg PO Q6HR PRN #20 capsule 06/24/21 Unknown Rx Vitamin 1 tab PO DAILY 06/24/21 06/24/21 06/21/21 History Active Meds: Active Medications Acetaminophen (Acetaminophen 500 Mg Tab) 1,000 mg PO Q6H HYACINTH Last Admin: 06/28/21 05:33 Dose: 1,000 mg Documented by: Butorphanol Tartrate (Butorphanol 2 Mg/1 Ml Inj) 1 mg IV Q2H PRN PRN Reason: Moderate pain (4-6) Butorphanol Tartrate (Butorphanol 2 Mg/1 Ml Inj) 2 mg IV Q2H PRN PRN Reason: Severe Pain (7-10) Ephedrine Sulfate (Ephedrine Sulfate 50 Mg/1 Ml Inj) 10 mg IV Q5M PRN PRN Reason: Blood Pressure Last Admin: 06/24/21 20:55 Dose: 10 mg Documented by: Ferrous Sulfate (Ferrous Sulfate 325 Mg Tab) 325 mg PO BID HYACINTH Last Admin: 06/27/21 21:32 Dose: 325 mg Documented by: Oxytocin/Sodium Chloride (Pitocin/Ns 30 Unit/500ml) 30 units in 500 mls @ 40 mls/hr IV TITR HYACINTH; Protocol Magnesium Sulfate (Magnesium Sulfate 40gm/1000ml) 40 gm in 1,000 mls @ 50 mls/hr IV DIRECT HYACINTH Last Admin: 06/24/21 14:41 Dose: 2 gm/hr, 50 mls/hr Documented by: Oxytocin/Sodium Chloride (Pitocin/Ns 30 Unit/500ml) 30 units in 500 mls @ 40 mls/hr IV TITR HYACINTH; Protocol Sodium Chloride (Nacl 0.9% 500 Ml) 500 mls @ 50 mls/hr IV DIRECT HYACINTH Lactated Ringer's (Lactated Ringers) 1,000 mls @ 125 mls/hr IV DIRECT HYACINTH Last Admin: 06/28/21 01:43 Dose: 125 mls/hr Documented by: Labetalol HCl (Labetalol 200 Mg Tab) 200 mg PO BID [facility] Last Admin: 06/27/21 21:32 Dose: 200 mg Documented by: Magnesium Hydroxide (Magnesium Hydroxide (Mom) Oral Liqd Udc) 30 ml PO QHS PRN PRN Reason: Constip Unrelieved By Senna Misoprostol (Misoprostol 200 Mcg Tab) 800 mcg FL ONCE PRN PRN Reason: Uterine Bleeding Multi-Ingredient Ointment (Lanolin/Zinc/Dimethicone (Lansinoh) 7 Gm) 1 applic TP PRN PRN PRN Reason: dryness/cracking Multivitamins/Iron/Calcium ( [id number] Fumarate-Folic Acid Vit Tab) 1 each PO QDAY [facility] Last Admin: 06/27/21 09:13 Dose: 1 each Documented by: Naloxone HCl (Naloxone 0.4 Mg/1 Ml Inj) 0.1 mg IV Q2MIN PRN PRN Reason: Res Rate </= 8 or 02 SAT < 92% Ondansetron HCl (Ondansetron 4 Mg/2 Ml Inj) 4 mg IV Q8H PRN PRN Reason: Nausea And Vomiting Oxycodone HCl (Oxycodone 5 Mg Tab) 5 mg PO Q6H PRN PRN Reason: Pain, Moderate (4-6) Last Admin: 06/28/21 05:32 Dose: 5 mg Documented by: Promethazine HCl (Promethazine 25 Mg Rect Supp) 25 mg FL Q6H PRN PRN Reason: N/V IF NPO AND NO IV ACCESS Senna (Sennosides 8.6 Mg Tab) 17.2 mg PO QHS PRN PRN Reason: Constipation Simethicone (Simethicone 80 Mg Chew Tab) 80 mg PO Q6H PRN PRN Reason: Gas pain Last Admin: 06/26/21 02:08 Dose: 80 mg Documented by: Witch Meghann/Glycerin (Witch Meghann/ Glycerin Pad) 1 each TP PRN PRN PRN Reason: Hemorrhoids/cleansing/soothing Mental Status Exam - Vital signs Last Vital Signs Temp 97.5 F L 06/28/21 05:25 Pulse 74 06/28/21 05:25 Resp 18 06/28/21 05:33 BP 158/86 06/28/21 05:25 Pulse Ox 100 06/28/21 05:33 Results Result Diagrams: 06/28/21 07:29 06/28/21 07:29 Abnormal lab results 06/27/21 06/27/21 06/28/21 Range/Units 15:08 15:08 07:29 WBC 12.0 H (4.5-11.0) K/mm3 RBC 3.27 L 3.17 L (3.65-5.03) M/mm3 Hgb 8.5 L 8.2 L (10.1-14.3) gm/dl Hct 26.0 L 25.4 L (30.3-42.9) % MCH 26 L 26 L (28-32) pg RDW 21.6 H 21.2 H (13.2-15.2) % Chloride 109.3 H (98-107) mmol/L Carbon Dioxide 17 L (22-30) mmol/L BUN 31 H (7-17) mg/dL Creatinine 2.1 H (0.6-1.2) mg/dL Calcium (8.4-10.2) mg/dL Magnesium 2.60 H (1.7-2.3) mg/dL 06/28/21 Range/Units 07:29 WBC (4.5-11.0) K/mm3 RBC (3.65-5.03) M/mm3 Hgb (10.1-14.3) gm/dl Hct (30.3-42.9) % MCH (28-32) pg RDW (13.2-15.2) % Chloride 107.4 H (98-107) mmol/L Carbon Dioxide 21 L (22-30) mmol/L BUN 24 H (7-17) mg/dL Creatinine 1.5 H (0.6-1.2) mg/dL Calcium 8.2 L (8.4-10.2) mg/dL Magnesium (1.7-2.3) mg/dL All other labs normal.
[2021-06-28] MEDS: FERROUS SULFATE 325 MG TAB PO SCH ×2 (10:06→21:11)
[2021-06-28] MEDS: PRENATAL VIT27-FE FUMARATE-FOLIC ACID VIT TAB PO SCH (10:09)
--- NOTE | 2021-06-28 10:41 | Progress Note ---
Assessment and Plan Assessment: IUFD Pre-eclampsia Acute Kidney Injury possibly 2/2 prerenal, ? CKD, no obstruction Metabolic acidosis Plan: -Cr trending down -Monitor acidosis -On LR infusion at 125 ml/hr, dec to 75 cc/hr as BP high -Monitor electrolytes closely, replete as needed -On labetalol 200 mg po BID, inc to 200 TID as BP high -Calculated protein to cr ratio 1.3 g, no eosinophils -Renal US showed possible signs of CKD, no hydronephrosis -Renally dose meds Subjective Date of service: 06/28/21 Principal diagnosis: s/p rpt , POD #3; IUFD, Pre eclampsia with severe features;LIAM Interval history: Making urine. NAD Objective - Exam Narrative Exam: - General Appearance General appearance: other (awake) EENT: ATNC Neck: no JVD Respiratory: Present: Clear to Ascultation Cardiology: regular, S1S2 Gastrointestinal: normoactive bowel sounds Integumentary: warm and dry Neurologic: alert and oriented x3 Psychiatric: other (flat affect) - Vital Signs Vital signs: Vital Signs - 12hr 06/27/21 06/28/21 06/28/21 23:00 01:21 05:25 Temperature 97.4 F L 97.5 F L Pulse Rate 56 L 74 Respiratory 18 18 Rate Blood Pressure 152/90 158/86 O2 Sat by Pulse 98 99 Oximetry O2 Sat by Pulse 100 Oximetry [ Bilateral] 06/28/21 06/28/21 06/28/21 05:32 05:33 08:55 Temperature 98.2 F Pulse Rate 54 L Respiratory 18 18 19 Rate Blood Pressure 165/89 O2 Sat by Pulse 96 Oximetry O2 Sat by Pulse 100 Oximetry [ Bilateral] - Lab 06/28/21 07:29 06/28/21 07:29 Most recent lab results Calcium 8.2 mg/dL (8.4-10.2) L 06/28/21 07:29 Phosphorus 5.50 mg/dL (2.5-4.5) H 06/26/21 16:10 Magnesium 2.20 mg/dL (1.7-2.3) 06/28/21 07:29 Urine Creatinine 34.4 mg/dL (0.1-20.0) H 06/26/21 17:45 Urine Sodium 83 mmol/L 06/26/21 17:45 Urine Total Protein 46 mg/dL (5-11.8) H 06/26/21 17:45 Medications & Allergies - Medications Allergies/Adverse Reactions: Allergies No Known Allergies Allergy (Unverified 06/24/21 12:50) Home Medications: Home Medications Medication Instructions Recorded Confirmed Last Taken Type Acetaminophen 500 mg PO Q6HR #30 capsule 06/24/21 Unknown Rx Docusate Sodium [Colace] 100 mg PO BID #60 capsule 06/24/21 Unknown Rx Ferrous Sulfate [Feosol 325 MG tab] 325 mg PO QDAY #30 tablet 06/24/21 Unknown Rx Oxycodone HCl 5 mg PO Q6HR PRN #20 capsule 06/24/21 Unknown Rx Vitamin 1 tab PO DAILY 06/24/21 06/24/21 06/21/21 History Active Medications: Generic Name Dose Route Start Last Admin Trade Name Freq PRN Reason Stop Dose Admin Acetaminophen 1,000 mg 06/25/21 10:00 06/28/21 05:33 Acetaminophen 500 Mg Tab PO 1,000 mg Q6H HYACINTH Administration Butorphanol Tartrate 1 mg 06/25/21 09:00 Butorphanol 2 Mg/1 Ml Inj IV Q2H PRN Moderate pain (4-6) Butorphanol Tartrate 2 mg 06/25/21 09:00 Butorphanol 2 Mg/1 Ml Inj IV Q2H PRN Severe Pain (7-10) Ephedrine Sulfate 10 mg 06/24/21 20:54 06/24/21 20:55 Ephedrine Sulfate 50 Mg/1 Ml Inj IV 10 mg Q5M PRN Administration Blood Pressure Ferrous Sulfate 325 mg 06/24/21 22:00 06/28/21 10:06 Ferrous Sulfate 325 Mg Tab PO 325 mg BID HYACINTH Administration Oxytocin/Sodium Chloride 30 units in 500 mls @ 40 mls/hr 06/24/21 14:00 Pitocin/Ns 30 Unit/500ml IV TITR HYACINTH Protocol Magnesium Sulfate 40 gm in 1,000 mls @ 50 mls/hr 06/24/21 14:00 06/24/21 14:41 Magnesium Sulfate 40gm/1000ml IV 2 gm/hr DIRECT HYACINTH 50 mls/hr Administration 2 GM/HR Oxytocin/Sodium Chloride 30 units in 500 mls @ 40 mls/hr 06/24/21 20:02 Pitocin/Ns 30 Unit/500ml IV TITR HYACINTH Protocol Sodium Chloride 500 mls @ 50 mls/hr 06/24/21 22:00 Nacl 0.9% 500 Ml IV DIRECT HYACINTH Lactated Ringer's 1,000 mls @ 125 mls/hr 06/25/21 05:00 06/28/21 10:08 Lactated Ringers IV 125 mls/hr DIRECT HYACINTH Administration Labetalol HCl 200 mg 06/26/21 10:00 06/28/21 10:06 Labetalol 200 Mg Tab PO 200 mg BID HYACINTH Administration Magnesium Hydroxide 30 ml 06/24/21 20:02 Magnesium Hydroxide (Mom) Oral Liqd Udc PO QHS PRN Constip Unrelieved By Senna Misoprostol 800 mcg 06/24/21 13:11 Misoprostol 200 Mcg Tab MA ONCE PRN Uterine Bleeding Multi-Ingredient Ointment 1 applic 06/24/21 20:02 Lanolin/Zinc/Dimethicone (Lansinoh) 7 Gm TP PRN PRN dryness/cracking Multivitamins/Iron/Calcium 1 each 06/25/21 10:00 06/28/21 10:09 [id number] Fumarate-Folic Acid Vit Tab PO 1 each QDAY HYACINTH Administration Naloxone HCl 0.1 mg 06/24/21 20:02 Naloxone 0.4 Mg/1 Ml Inj IV Q2MIN PRN Res Rate </= 8 or 02 SAT < 92% Ondansetron HCl 4 mg 06/24/21 20:02 Ondansetron 4 Mg/2 Ml Inj IV Q8H PRN Nausea And Vomiting Oxycodone HCl 5 mg 06/25/21 09:00 06/28/21 05:32 Oxycodone 5 Mg Tab PO 5 mg Q6H PRN Administration Pain, Moderate (4-6) Promethazine HCl 25 mg 06/24/21 20:02 Promethazine 25 Mg Rect Supp MA Q6H PRN N/V IF NPO AND NO IV ACCESS Senna 17.2 mg 06/24/21 20:02 Sennosides 8.6 Mg Tab PO QHS PRN Constipation Simethicone 80 mg 06/24/21 20:02 06/26/21 02:08 Simethicone 80 Mg Chew Tab PO 80 mg Q6H PRN Administration Gas pain Witch Meghann/Glycerin 1 each 06/24/21 20:02 Witch Meghann/ Glycerin Pad TP PRN PRN Hemorrhoids/cleansing/soothing
--- NOTE | 2021-06-28 11:21 | Progress Note ---
Assessment and Plan A: 35 y.o. POD #4, pre eclampsia with severe features. LIAM. IUFD. P: 1. Continue to follow nephrology recommendations for LIAM: -Cr trending down -Monitor acidosis -On LR infusion at 125 ml/hr, dec to 75 cc/hr as BP high -Monitor electrolytes closely, replete as needed -On labetalol 200 mg po BID, inc to 200 TID as BP high -Calculated protein to cr ratio 1.3 g, no eosinophils -Renal US showed possible signs of CKD, no hydronephrosis -Renally dose meds 2. Pre eclampsia with severe features - Continue to monitor blood pressures. - Continue to monitor for worsening s/sx of pre eclampsia. 3. IUFD - Continue to offer emotional support. - Mental health assessment completed by psych team. Subjective - Subjective Date of service: 06/28/21 (Pt asked about discharge home.) Principal diagnosis: s/p rpt , POD #4; IUFD, Pre eclampsia with severe features;LIAM Patient reports: appetite normal, flatus, ambulating normally : doing well Objective - Vital Signs Latest vital signs: Vital Signs Temp Pulse Resp BP BP Pulse Ox Pulse Ox 06/28/21 08:55 98.2 F 54 L 19 165/89 96 06/28/21 05:33 18 100 06/28/21 05:32 18 06/28/21 05:25 97.5 F L 74 18 158/86 99 06/28/21 01:21 97.4 F L 56 L 18 152/90 98 06/27/21 23:00 100 06/27/21 22:01 18 99 06/27/21 21:32 98.2 F 60 16 154/88 97 06/27/21 19:30 100 06/27/21 18:10 68 147/69 06/27/21 16:50 98.2 F 74 18 159/73 96 06/27/21 12:10 98.0 F 76 18 148/74 96 06/27/21 12:02 98 F 77 18 160/83 96 Intake and Output 06/27/21 06/28/21 06/28/21 22:59 06:59 14:59 Intake Total 1071.25 1356.25 1000 Output Total 1300 3000 1300 Balance -228.75 -1643.75 -300 Intake: IV 831.25 956.25 1000 Lactated Ringers 1,000 ml 831.25 956.25 1000 @ 125 mls/hr IV DIRECT HYACINTH Rx#:[id number] Oral 200 Intake, Free Water 240 200 Output: Urine 1300 3000 1300 Indwelling 1300 1500 Indwelling Catheter 1500 1300 Other: Total, Intake Amount 100 Total, Output Amount 300 600 - Exam Narrative Exam: Pt expressed a desire to go home at this time. We discussed that she had not yet been cleared by nephrology and once they clear her she will be able to go home. She has a Pedroza catheter in place that is draining clear yellow urine. There is about 200ml in amount in the catheter. Pt denies BRAND, blurred vision, spots before her eyes, chest pain, shortness of breath, and upper abdominal pain. Breasts: Present: deferred Cardiovascular: Present: Normal S1, Normal S2 Lungs: Present: Clear to auscultation Abdomen: Present: normal appearance, soft, normal bowel sounds Uterus: Present: normal, firm Extremities: Present: edema (+1 edema noted to bilateral lower and upper extremities. ) Incision: Present: normal, dry, intact, other (Steri strips intact. No s/sx of infection or drainage noted.) - Labs Labs: Abnormal lab results 06/27/21 06/27/21 06/28/21 Range/Units 15:08 15:08 07:29 WBC 12.0 H (4.5-11.0) K/mm3 RBC 3.27 L 3.17 L (3.65-5.03) M/mm3 Hgb 8.5 L 8.2 L (10.1-14.3) gm/dl Hct 26.0 L 25.4 L (30.3-42.9) % MCH 26 L 26 L (28-32) pg RDW 21.6 H 21.2 H (13.2-15.2) % Chloride 109.3 H (98-107) mmol/L Carbon Dioxide 17 L (22-30) mmol/L BUN 31 H (7-17) mg/dL Creatinine 2.1 H (0.6-1.2) mg/dL Calcium (8.4-10.2) mg/dL Magnesium 2.60 H (1.7-2.3) mg/dL 06/28/21 Range/Units 07:29 WBC (4.5-11.0) K/mm3 RBC (3.65-5.03) M/mm3 Hgb (10.1-14.3) gm/dl Hct (30.3-42.9) % MCH (28-32) pg RDW (13.2-15.2) % Chloride 107.4 H (98-107) mmol/L Carbon Dioxide 21 L (22-30) mmol/L BUN 24 H (7-17) mg/dL Creatinine 1.5 H (0.6-1.2) mg/dL Calcium 8.2 L (8.4-10.2) mg/dL Magnesium (1.7-2.3) mg/dL
[2021-06-28] MEDS: SIMETHICONE 80 MG CHEW TAB PO PRN (15:04)
[2021-06-29] MEDS: LACTATED RINGERS 1,000 ML IV SCH ×2 (01:53→21:10)
[2021-06-29] MEDS: ACETAMINOPHEN 500 MG TAB PO SCH ×3 (05:33→21:10)
[2021-06-29 07:50] LABS: Hematocrit 24.3 % (30.3-42.9); Hemoglobin 8.3 gm/dl (10.1-14.3); Mean Corpuscular HGB Conc 34 % (30-34); Mean Corpuscular Volume 80 fl (79-97); Platelet Count 179 K/mm3 (140-440); Red Blood Count 3.05 M/mm3 (3.65-5.03)
[2021-06-29 07:55] LABS: Red Cell Distribution Width 21.4 % (13.2-15.2)
[2021-06-29 08:13] LABS: Calcium 8.5 mg/dL (8.4-10.2)
--- NOTE | 2021-06-29 10:47 | Progress Note ---
Assessment and Plan Assessment: IUFD Pre-eclampsia Acute Kidney Injury possibly 2/2 prerenal, ? CKD, no obstruction Metabolic acidosis Plan: -Cr slightly down. Monitor. -Monitor acidosis -On LR infusion at 75 cc/hr. -Monitor electrolytes closely, replete as needed -On labetalol 200 mg po TID, Add Norvasc 10 mg OD to regimen as BP still high. -Calculated protein to cr ratio 1.3 g, no eosinophils -Renal US showed possible signs of CKD, no hydronephrosis -Renally dose meds Subjective Date of service: 06/29/21 Principal diagnosis: s/p rpt , POD #4; IUFD, Pre eclampsia with severe features;LIAM Interval history: Making urine. NAD Objective - Exam Narrative Exam: - General Appearance General appearance: other (awake) EENT: ATNC Neck: no JVD Respiratory: Present: Clear to Ascultation Cardiology: regular, S1S2 Gastrointestinal: normoactive bowel sounds Integumentary: warm and dry Neurologic: alert and oriented x3 Psychiatric: other (flat affect) - Vital Signs Vital signs: Vital Signs - 12hr 06/28/21 06/28/21 06/28/21 23:19 23:21 23:53 Temperature 98.0 F Pulse Rate 72 Respiratory 16 16 16 Rate Blood Pressure 163/83 Blood Pressure [Right] O2 Sat by Pulse 96 Oximetry 06/29/21 06/29/21 06/29/21 04:26 04:37 04:50 Temperature 98.3 F Pulse Rate 72 Respiratory 18 18 18 Rate Blood Pressure 172/91 163/74 Blood Pressure 163/74 [Right] O2 Sat by Pulse 94 99 Oximetry 06/29/21 06/29/21 07:42 08:58 Temperature 98.0 F Pulse Rate 68 61 Respiratory 18 Rate Blood Pressure 179/72 174/77 Blood Pressure [Right] O2 Sat by Pulse 96 Oximetry - Lab 06/29/21 07:18 06/29/21 07:18 Most recent lab results Calcium 8.5 mg/dL (8.4-10.2) 06/29/21 07:18 Phosphorus 5.50 mg/dL (2.5-4.5) H 06/26/21 16:10 Magnesium 2.00 mg/dL (1.7-2.3) 06/29/21 07:18 Urine Creatinine 34.4 mg/dL (0.1-20.0) H 06/26/21 17:45 Urine Sodium 83 mmol/L 06/26/21 17:45 Urine Total Protein 46 mg/dL (5-11.8) H 06/26/21 17:45 Medications & Allergies - Medications Allergies/Adverse Reactions: Allergies No Known Allergies Allergy (Unverified 06/24/21 12:50) Home Medications: Home Medications Medication Instructions Recorded Confirmed Last Taken Type Acetaminophen 500 mg PO Q6HR #30 capsule 06/24/21 Unknown Rx Docusate Sodium [Colace] 100 mg PO BID #60 capsule 06/24/21 Unknown Rx Ferrous Sulfate [Feosol 325 MG tab] 325 mg PO QDAY #30 tablet 06/24/21 Unknown Rx Oxycodone HCl 5 mg PO Q6HR PRN #20 capsule 06/24/21 Unknown Rx Vitamin 1 tab PO DAILY 06/24/21 06/24/21 06/21/21 History Active Medications: Generic Name Dose Route Start Last Admin Trade Name Freq PRN Reason Stop Dose Admin Acetaminophen 1,000 mg 06/25/21 10:00 06/29/21 05:33 Acetaminophen 500 Mg Tab PO 1,000 mg Q6H HYACINTH Administration Butorphanol Tartrate 1 mg 06/25/21 09:00 Butorphanol 2 Mg/1 Ml Inj IV Q2H PRN Moderate pain (4-6) Butorphanol Tartrate 2 mg 06/25/21 09:00 Butorphanol 2 Mg/1 Ml Inj IV Q2H PRN Severe Pain (7-10) Ephedrine Sulfate 10 mg 06/24/21 20:54 06/24/21 20:55 Ephedrine Sulfate 50 Mg/1 Ml Inj IV 10 mg Q5M PRN Administration Blood Pressure Ferrous Sulfate 325 mg 06/24/21 22:00 06/28/21 21:11 Ferrous Sulfate 325 Mg Tab PO 325 mg BID HYACINTH Administration Oxytocin/Sodium Chloride 30 units in 500 mls @ 40 mls/hr 06/24/21 14:00 Pitocin/Ns 30 Unit/500ml IV TITR HYACINTH Protocol Magnesium Sulfate 40 gm in 1,000 mls @ 50 mls/hr 06/24/21 14:00 06/24/21 14:41 Magnesium Sulfate 40gm/1000ml IV 2 gm/hr DIRECT HYACINTH 50 mls/hr Administration 2 GM/HR Oxytocin/Sodium Chloride 30 units in 500 mls @ 40 mls/hr 06/24/21 20:02 Pitocin/Ns 30 Unit/500ml IV TITR [facility] Protocol Sodium Chloride 500 mls @ 50 mls/hr 06/24/21 22:00 Nacl 0.9% 500 Ml IV DIRECT HYACINTH Lactated Ringer's 1,000 mls @ 75 mls/hr 06/28/21 13:30 06/29/21 01:53 Lactated Ringers IV 75 mls/hr DIRECT HYACINTH Administration Labetalol HCl 200 mg 06/28/21 14:00 06/29/21 08:58 Labetalol 200 Mg Tab PO 200 mg TID HYACINTH Administration Magnesium Hydroxide 30 ml 06/24/21 20:02 06/28/21 23:20 Magnesium Hydroxide (Mom) Oral Liqd Udc PO 30 ml QHS PRN Administration Constip Unrelieved By Senna Misoprostol 800 mcg 06/24/21 13:11 Misoprostol 200 Mcg Tab UT ONCE PRN Uterine Bleeding Multi-Ingredient Ointment 1 applic 06/24/21 20:02 Lanolin/Zinc/Dimethicone (Lansinoh) 7 Gm TP PRN PRN dryness/cracking Multivitamins/Iron/Calcium 1 each 06/25/21 10:00 06/28/21 10:09 [id number] Fumarate-Folic Acid Vit Tab PO 1 each QDAY HYACINTH Administration Naloxone HCl 0.1 mg 06/24/21 20:02 Naloxone 0.4 Mg/1 Ml Inj IV Q2MIN PRN Res Rate </= 8 or 02 SAT < 92% Ondansetron HCl 4 mg 06/24/21 20:02 06/28/21 12:24 Ondansetron 4 Mg/2 Ml Inj IV 4 mg Q8H PRN Administration Nausea And Vomiting Oxycodone HCl 5 mg 06/25/21 09:00 06/28/21 23:21 Oxycodone 5 Mg Tab PO 5 mg Q6H PRN Administration Pain, Moderate (4-6) Promethazine HCl 25 mg 06/24/21 20:02 Promethazine 25 Mg Rect Supp UT Q6H PRN N/V IF NPO AND NO IV ACCESS Senna 17.2 mg 06/24/21 20:02 Sennosides 8.6 Mg Tab PO QHS PRN Constipation Simethicone 80 mg 06/24/21 20:02 06/28/21 15:04 Simethicone 80 Mg Chew Tab PO 80 mg Q6H PRN Administration Gas pain Witch Meghann/Glycerin 1 each 06/24/21 20:02 Witch Meghann/ Glycerin Pad TP PRN PRN Hemorrhoids/cleansing/soothing
[2021-06-29] MEDS: amLODIPine 10 MG TAB PO SCH (12:45)
--- NOTE | 2021-06-29 12:46 | Progress Note ---
Assessment and Plan A: 35 y.o. s/p rpt , pre eclampsia with severe features, IUFD. LIAM. Continued elevated blood pressures. P: Continue with care. Advance diet as tolerated. Encouraged ambulation. Continue with strict I&O's. Continue to monitor for worsening s/sx of pre eclampsia. Norvasc 10 mg PO daily added to blood pressure regime per Nephrology. Recommendations from Nephrology: -Cr slightly down. Monitor. -Monitor acidosis -On LR infusion at 75 cc/hr. -Monitor electrolytes closely, replete as needed -On labetalol 200 mg po TID, Add Norvasc 10 mg OD to regimen as BP still high. -Calculated protein to cr ratio 1.3 g, no eosinophils -Renal US showed possible signs of CKD, no hydronephrosis -Renally dose meds Subjective - Subjective Date of service: 06/29/21 Principal diagnosis: s/p rpt , POD #5; IUFD, Pre eclampsia with severe features;LIAM Patient reports: appetite normal, pain well controlled, flatus, ambulating normally, other (Pedroza catheter in place. Clear yellow urine draining. ) : doing well Objective - Vital Signs Latest vital signs: Vital Signs Temp Pulse Resp BP BP Pulse Ox Pulse Ox 06/29/21 08:58 61 174/77 06/29/21 08:00 99 06/29/21 07:42 98.0 F 68 18 179/72 96 06/29/21 04:50 18 163/74 99 06/29/21 04:37 18 163/74 06/29/21 04:26 98.3 F 72 18 172/91 94 06/28/21 23:53 98.0 F 72 16 163/83 96 06/28/21 23:21 16 06/28/21 23:19 16 06/28/21 21:12 56 L 173/85 06/28/21 19:53 97.6 F 56 L 18 173/85 96 06/28/21 19:30 99 06/28/21 18:20 100 06/28/21 17:02 98.4 F 68 18 157/68 95 06/28/21 16:00 100 06/28/21 14:00 100 Intake and Output 06/28/21 06/29/21 06/29/21 22:59 06:59 14:59 Intake Total 300 Output Total 2400 2900 1700 Balance -2400 -2600 -1700 Intake: Oral 300 Output: Urine 2400 2900 1700 Indwelling 900 1700 Indwelling Catheter 1500 1200 1700 Other: Total, Intake Amount 200 Total, Output Amount 333 324 6237 - Exam Narrative Exam: Pt is doing well. Has a strong desire to go home. She denies BRAND, blurred vision, spots before her eyes, chest pain, shortness of breath, and upper abdominal pain. Blood pressure ranges have been 160's-170's/80-90's. Per Nephrology, Norvasc 10 mg PO daily added. Pedroza catheter in place. Draining an adequate amount of clear yellow urine. Breasts: Present: deferred Cardiovascular: Present: Normal S1, Normal S2 Lungs: Present: Clear to auscultation Abdomen: Present: normal appearance, soft, normal bowel sounds Uterus: Present: normal Extremities: Present: edema (Trace generalized edema. ) Incision: Present: normal, dry, intact, other (No drainage or s/sx of infection noted. ) - Labs Labs: Abnormal lab results 06/29/21 06/29/21 Range/Units 07:18 07:18 RBC 3.05 L (3.65-5.03) M/mm3 Hgb 8.3 L (10.1-14.3) gm/dl Hct 24.3 L (30.3-42.9) % MCH 27 L (28-32) pg RDW 21.4 H (13.2-15.2) % Chloride 108.1 H (98-107) mmol/L BUN 18 H (7-17) mg/dL Creatinine 1.4 H (0.6-1.2) mg/dL
[2021-06-30] MEDS: FERROUS SULFATE 325 MG TAB PO SCH ×3 (00:40→21:02)
[2021-06-30] MEDS: ACETAMINOPHEN 500 MG TAB PO SCH ×2 (06:23→10:06)
[2021-06-30 06:53] LABS: Hematocrit 27.3 % (30.3-42.9); Mean Corpuscular HGB Conc 33 % (30-34); Mean Corpuscular Volume 81 fl (79-97); Platelet Count 230 K/mm3 (140-440); Red Blood Count 3.38 M/mm3 (3.65-5.03)
[2021-06-30 06:54] LABS: Red Cell Distribution Width 22.3 % (13.2-15.2)
[2021-06-30 07:02] LABS: Calcium 8.7 mg/dL (8.4-10.2)
[2021-06-30] MEDS: PRENATAL VIT27-FE FUMARATE-FOLIC ACID VIT TAB PO SCH (10:07)
[2021-06-30] MEDS: amLODIPine 10 MG TAB PO SCH (10:12)
--- NOTE | 2021-06-30 11:24 | Progress Note ---
Assessment and Plan - Patient Problems (1) delivery delivered Current Visit: Yes Status: Acute Plan to address problem: -stable from post op standpoint -cont post op care (2) Elevated serum creatinine Current Visit: Yes Status: Acute Plan to address problem: -Nephrology team following -will await further recommendations improving (3) IUFD (intrauterine ) Current Visit: Yes Status: Acute (4) Pre-eclampsia Current Visit: Yes Status: Acute Qualifiers: Trimester: third trimester Qualified Code(s): O14.93 - Unspecified pre- eclampsia, third trimester Plan to address problem: -cont current meds as per renal recommendations -bp improved today with adjustment made Subjective - Subjective Date of service: 06/30/21 (late entry pt seen at 0900) Principal diagnosis: s/p rpt , POD #6; IUFD, Pre eclampsia with severe features;LIAM Interval history: Pt and s/o have questions today regarding care with future pregnancies and prevention or repeat abruption. All questions were addressed and answered. 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 They expressed understanding. Patient reports: appetite normal, voiding normally (giles in plce), pain well controlled, no dizzy ambulation Objective - Vital Signs Latest vital signs: Vital Signs Temp Pulse Resp BP Pulse Ox Pulse Ox 06/30/21 10:12 89 129/80 06/30/21 08:47 87 143/77 06/30/21 08:26 98.0 F 87 20 143/77 98 06/30/21 08:00 98 06/30/21 06:21 98 06/30/21 05:20 71 158/80 97 06/30/21 03:10 98 06/30/21 01:20 98 06/29/21 23:55 98 06/29/21 23:30 97.8 F 99 H 18 137/81 93 06/29/21 21:40 98 06/29/21 21:10 78 139/84 06/29/21 20:30 98 06/29/21 15:48 98.2 F 68 18 151/77 95 06/29/21 14:59 182/91 06/29/21 14:48 82 182/91 06/29/21 12:45 70 151/77 06/29/21 12:16 97.9 F 71 18 163/86 99 Intake and Output 06/29/21 06/30/21 06/30/21 22:59 06:59 14:59 Intake Total 1240 1220 220 Output Total 3000 2100 1000 Balance -2580 -801 -011 Intake: IV 1000 Lactated Ringers 1,000 ml 1000 @ 75 mls/hr IV DIRECT HYACINTH Rx#:[id number] Oral 240 1220 220 Output: Urine 3000 2100 1000 Indwelling Catheter 3000 2100 1000 Other: Total, Intake Amount 240 1100 220 Total, Output Amount 800 1000 1000 - Exam Cardiovascular: Present: Normal S1, Normal S2 Lungs: Present: Normal air movement Abdomen: Present: normal appearance, soft. Absent: distention, tenderness, guarding Incision: Present: other (exan deferred as pt sitting in chair) - Labs Labs: Abnormal lab results 06/30/21 06/30/21 Range/Units 06:28 06:28 RBC 3.38 L (3.65-5.03) M/mm3 Hgb 9.0 L (10.1-14.3) gm/dl Hct 27.3 L (30.3-42.9) % MCH 27 L (28-32) pg RDW 22.3 H (13.2-15.2) % Chloride 108.0 H (98-107) mmol/L Creatinine 1.3 H (0.6-1.2) mg/dL
--- NOTE | 2021-06-30 16:37 | Progress Note ---
Assessment and Plan Assessment: IUFD Pre-eclampsia Acute Kidney Injury possibly 2/2 prerenal, ? CKD, no obstruction Plan: -Renal function reviewed, SCr level was 1.3 today, yesterday's SCr level was 1.4 -On LR infusion at 75 ml/hr -Monitor electrolytes closely, replete as needed -On labetalol 200 mg po TID, adjust as needed -Calculated protein to cr ratio 1.3 g, no eosinophils -Renal US showed possible signs of CKD, no hydronephrosis -Renally dose meds -Pedroza Catheter: Yes -Intake= 2460 ml Output= 6801 ml (Net= -4341 ml) -Renal plan reviewed by Dr Oliveros Subjective Date of service: 06/30/21 Principal diagnosis: s/p rpt , POD #5; IUFD, Pre eclampsia with severe features;LIAM Interval history: Pt seen in the chair, states she has some left arm pain from prior IV that has since been taken out. No acute distress, no family at bedside Objective - Vital Signs Vital signs: Vital Signs - 12hr 06/30/21 06/30/21 06/30/21 05:20 06:21 08:00 Temperature Pulse Rate 71 Respiratory Rate Blood Pressure 158/80 O2 Sat by Pulse 97 Oximetry O2 Sat by Pulse 98 98 Oximetry [ Bilateral] 06/30/21 06/30/21 06/30/21 08:26 08:47 10:12 Temperature 98.0 F Pulse Rate 87 87 89 Respiratory 20 Rate Blood Pressure 143/77 143/77 129/80 O2 Sat by Pulse 98 Oximetry O2 Sat by Pulse Oximetry [ Bilateral] 06/30/21 06/30/21 11:58 14:49 Temperature 98.0 F Pulse Rate 80 93 H Respiratory 20 16 Rate Blood Pressure 139/77 117/78 O2 Sat by Pulse 98 99 Oximetry O2 Sat by Pulse Oximetry [ Bilateral] - General Appearance General appearance: well-developed EENT: ATNC Neck: supple Respiratory: Present: Clear to Ascultation Cardiology: regular, S1S2 Gastrointestinal: normoactive bowel sounds Integumentary: warm and dry Neurologic: alert and oriented x3 Musculoskeletal: other (trace edema to BLE) - Lab 06/30/21 06:28 06/30/21 06:28 Most recent lab results Calcium 8.7 mg/dL (8.4-10.2) 06/30/21 06:28 Phosphorus 5.50 mg/dL (2.5-4.5) H 06/26/21 16:10 Magnesium 1.70 mg/dL (1.7-2.3) 06/30/21 06:28 Urine Creatinine 34.4 mg/dL (0.1-20.0) H 06/26/21 17:45 Urine Sodium 83 mmol/L 06/26/21 17:45 Urine Total Protein 46 mg/dL (5-11.8) H 06/26/21 17:45 Medications & Allergies - Medications Allergies/Adverse Reactions: Allergies No Known Allergies Allergy (Unverified 06/24/21 12:50) Home Medications: Home Medications Medication Instructions Recorded Confirmed Last Taken Type Acetaminophen 500 mg PO Q6HR #30 capsule 06/24/21 Unknown Rx Docusate Sodium [Colace] 100 mg PO BID #60 capsule 06/24/21 Unknown Rx Ferrous Sulfate [Feosol 325 MG tab] 325 mg PO QDAY #30 tablet 06/24/21 Unknown Rx Oxycodone HCl 5 mg PO Q6HR PRN #20 capsule 06/24/21 Unknown Rx Vitamin 1 tab PO DAILY 06/24/21 06/24/21 06/21/21 History Active Medications: Generic Name Dose Route Start Last Admin Trade Name Freq PRN Reason Stop Dose Admin Acetaminophen 1,000 mg 06/25/21 10:00 06/30/21 10:06 Acetaminophen 500 Mg Tab PO 1,000 mg Q6H HYACINTH Administration Amlodipine Besylate 10 mg 06/29/21 11:00 06/30/21 10:12 Amlodipine 10 Mg Tab PO 10 mg QDAY HYACINTH Administration Butorphanol Tartrate 1 mg 06/25/21 09:00 Butorphanol 2 Mg/1 Ml Inj IV Q2H PRN Moderate pain (4-6) Butorphanol Tartrate 2 mg 06/25/21 09:00 Butorphanol 2 Mg/1 Ml Inj IV Q2H PRN Severe Pain (7-10) Ephedrine Sulfate 10 mg 06/24/21 20:54 06/24/21 20:55 Ephedrine Sulfate 50 Mg/1 Ml Inj IV 10 mg Q5M PRN Administration Blood Pressure Ferrous Sulfate 325 mg 06/24/21 22:00 06/30/21 10:07 Ferrous Sulfate 325 Mg Tab PO 325 mg BID HYACINTH Administration Oxytocin/Sodium Chloride 30 units in 500 mls @ 40 mls/hr 06/24/21 14:00 Pitocin/Ns 30 Unit/500ml IV TITR HYACINTH Protocol Magnesium Sulfate 40 gm in 1,000 mls @ 50 mls/hr 06/24/21 14:00 06/24/21 14:41 Magnesium Sulfate 40gm/1000ml IV 2 gm/hr DIRECT HYACINTH 50 mls/hr Administration 2 GM/HR Oxytocin/Sodium Chloride 30 units in 500 mls @ 40 mls/hr 06/24/21 20:02 Pitocin/Ns 30 Unit/500ml IV TITR HYACINTH Protocol Sodium Chloride 500 mls @ 50 mls/hr 06/24/21 22:00 Nacl 0.9% 500 Ml IV DIRECT HYACINTH Lactated Ringer's 1,000 mls @ 75 mls/hr 06/28/21 13:30 06/29/21 21:10 Lactated Ringers IV 75 mls/hr DIRECT HYACINTH Administration Labetalol HCl 200 mg 06/28/21 14:00 06/30/21 08:47 Labetalol 200 Mg Tab PO 200 mg TID HYACINTH Administration Magnesium Hydroxide 30 ml 06/24/21 20:02 06/28/21 23:20 Magnesium Hydroxide (Mom) Oral Liqd Udc PO 30 ml QHS PRN Administration Constip Unrelieved By Senna Misoprostol 800 mcg 06/24/21 13:11 Misoprostol 200 Mcg Tab MO ONCE PRN Uterine Bleeding Multi-Ingredient Ointment 1 applic 06/24/21 20:02 Lanolin/Zinc/Dimethicone (Lansinoh) 7 Gm TP PRN PRN dryness/cracking Multivitamins/Iron/Calcium 1 each 06/25/21 10:00 06/30/21 10:07 [id number] Fumarate-Folic Acid Vit Tab PO 1 each QDAY HYACINTH Administration Naloxone HCl 0.1 mg 06/24/21 20:02 Naloxone 0.4 Mg/1 Ml Inj IV Q2MIN PRN Res Rate </= 8 or 02 SAT < 92% Ondansetron HCl 4 mg 06/24/21 20:02 06/28/21 12:24 Ondansetron 4 Mg/2 Ml Inj IV 4 mg Q8H PRN Administration Nausea And Vomiting Oxycodone HCl 5 mg 06/25/21 09:00 06/28/21 23:21 Oxycodone 5 Mg Tab PO 5 mg Q6H PRN Administration Pain, Moderate (4-6) Promethazine HCl 25 mg 06/24/21 20:02 Promethazine 25 Mg Rect Supp MO Q6H PRN N/V IF NPO AND NO IV ACCESS Senna 17.2 mg 06/24/21 20:02 Sennosides 8.6 Mg Tab PO QHS PRN Constipation Simethicone 80 mg 06/24/21 20:02 06/28/21 15:04 Simethicone 80 Mg Chew Tab PO 80 mg Q6H PRN Administration Gas pain Witch Meghann/Glycerin 1 each 06/24/21 20:02 Witch Meghann/ Glycerin Pad TP PRN PRN Hemorrhoids/cleansing/soothing
[2021-07-01] MEDS: LACTATED RINGERS 1,000 ML IV SCH (01:09)
--- NOTE | 2021-07-01 07:40 | Progress Note ---
Assessment and Plan A: 35 y.o. s/p rpt POD #7, pre eclampsia with severe features, IUFD. LIAM. P: Continue with care. Encouraged ambulation. Continue with strict I&O's. Continue to monitor for worsening s/sx of pre eclampsia. Norvasc 10 mg PO and Labetalol 200mg TID for blood pressure control per Nephrology. Awaiting clearance from Nephrology regarding discharge home. Recommendations from Nephrology: Renal function reviewed, SCr level was 1.3 today, yesterday's SCr level was 1.4 -On LR infusion at 75 ml/hr -Monitor electrolytes closely, replete as needed -On labetalol 200 mg po TID, adjust as needed -Calculated protein to cr ratio 1.3 g, no eosinophils -Renal US showed possible signs of CKD, no hydronephrosis -Renally dose meds -Pedroza Catheter: Yes -Intake= 2460 ml Output= 6801 ml (Net= -4341 ml) Subjective - Subjective Date of service: 07/01/21 Principal diagnosis: s/p rpt , POD #7; IUFD, Pre eclampsia with severe features;LIAM Patient reports: appetite normal, pain well controlled, flatus, ambulating normally, other (Pedroza catheter in place. ) : other (IUFD) Objective - Vital Signs Latest vital signs: Vital Signs Temp Pulse Resp BP Pulse Ox Pulse Ox 07/01/21 05:29 98.1 F 90 20 123/86 98 07/01/21 00:38 98.9 F 85 18 129/77 97 06/30/21 21:03 78 144/86 06/30/21 20:10 98.1 F 78 20 144/86 100 06/30/21 19:30 99 06/30/21 16:08 98.0 F 86 20 127/76 99 06/30/21 14:49 93 H 16 117/78 99 06/30/21 14:10 75 117/78 06/30/21 11:58 98.0 F 80 20 139/77 98 06/30/21 10:12 89 129/80 06/30/21 08:47 87 143/77 06/30/21 08:26 98.0 F 87 20 143/77 98 06/30/21 08:00 98 Intake and Output 06/30/21 07/01/2121 22:59 06:59 14:59 Intake Total 120 220 Output Total 1500 3400 Balance -1380 -3180 Intake: Oral 120 220 Output: Urine 1500 3400 Indwelling 600 1500 Indwelling Catheter 900 1900 Other: Total, Intake Amount 120 100 Total, Output Amount 900 500 - Exam Narrative Exam: Denies spots before her eyes, chest pain, shortness of breath, and upper abdominal pain. Pt states that she has occasional HAs. Pedroza catheter in place draining clear yellow urine. Adequate I&Os. Blood pressure ranges have been 117-140's/70-80's. Breasts: Present: deferred Cardiovascular: Present: Normal S1, Normal S2 Lungs: Present: Clear to auscultation Abdomen: Present: normal appearance, soft, normal bowel sounds Vulva: both: normal Uterus: Present: normal Extremities: Present: edema (Trace edema noted to bilateral lower extremities. ) Deep Tendon Reflex Grade: Normal +2 Incision: Present: normal, dry, intact, other (Steri strips in place. No drain age or s/sx of infection noted. )
[2021-07-01] MEDS: ACETAMINOPHEN 500 MG TAB PO SCH ×2 (10:37→16:37)
[2021-07-01] MEDS: amLODIPine 10 MG TAB PO SCH (10:40)
[2021-07-01] MEDS: PRENATAL VIT27-FE FUMARATE-FOLIC ACID VIT TAB PO SCH ×2 (10:55→10:59)
[2021-07-01] MEDS: FERROUS SULFATE 325 MG TAB PO SCH ×2 (10:55→10:58)
[2021-07-01 11:08] LABS: Hematocrit 29.5 % (30.3-42.9); Hemoglobin 9.6 gm/dl (10.1-14.3); Mean Corpuscular HGB Conc 32 % (30-34); Mean Corpuscular Volume 80 fl (79-97); Platelet Count 301 K/mm3 (140-440); Red Blood Count 3.67 M/mm3 (3.65-5.03)
[2021-07-01 11:17] LABS: Red Cell Distribution Width 21.9 % (13.2-15.2)
[2021-07-01 11:20] LABS: Calcium 8.8 mg/dL (8.4-10.2)
--- NOTE | 2021-07-01 15:34 | Progress Note ---
Assessment and Plan Assessment: IUFD Pre-eclampsia Acute Kidney Injury possibly 2/2 prerenal, ? CKD, no obstruction Plan: -Renal function reviewed, SCr level was 1.1 today, yesterday's SCr level was 1.3 -On LR infusion at 75 ml/hr -Ok for pt to be discharged from nephrology standpoint and follow up with us in the office in 2 wks -Monitor electrolytes closely, replete as needed -On labetalol 200 mg po TID, adjust as needed -Calculated protein to cr ratio 1.3 g, no eosinophils -Renal US showed possible signs of CKD, no hydronephrosis -Renally dose meds -Orders placed to remove giles catheter -Intake= 1760 ml Output= 6800 ml (Net= -5040 ml) -Renal plan reviewed by Dr Oliveros Subjective Date of service: 07/01/21 Principal diagnosis: s/p rpt , POD #7; IUFD, Pre eclampsia with severe features;LIAM Interval history: Pt seen in bed, states she feels ok, no acute distress, no family at bedside Objective - Vital Signs Vital signs: Vital Signs - 12hr 07/01/21 07/01/21 07/01/21 05:29 08:11 08:51 Temperature 98.1 F 98.0 F Pulse Rate 90 78 79 Respiratory 20 18 Rate Blood Pressure 123/86 146/76 147/75 O2 Sat by Pulse 98 92 Oximetry 07/01/21 07/01/21 11:49 14:50 Temperature 97.9 F Pulse Rate 90 75 Respiratory 19 Rate Blood Pressure 116/87 127/82 O2 Sat by Pulse 99 Oximetry - Lab 07/01/21 10:40 07/01/21 10:40 Most recent lab results Calcium 8.8 mg/dL (8.4-10.2) 07/01/21 10:40 Phosphorus 5.50 mg/dL (2.5-4.5) H 06/26/21 16:10 Magnesium 1.60 mg/dL (1.7-2.3) L 07/01/21 10:40 Urine Creatinine 34.4 mg/dL (0.1-20.0) H 06/26/21 17:45 Urine Sodium 83 mmol/L 06/26/21 17:45 Urine Total Protein 46 mg/dL (5-11.8) H 06/26/21 17:45 Medications & Allergies - Medications Allergies/Adverse Reactions: Allergies No Known Allergies Allergy (Unverified 06/24/21 12:50) Home Medications: Home Medications Medication Instructions Recorded Confirmed Last Taken Type Acetaminophen 500 mg PO Q6HR #30 capsule 06/24/21 Unknown Rx Docusate Sodium [Colace] 100 mg PO BID #60 capsule 06/24/21 Unknown Rx Ferrous Sulfate [Feosol 325 MG tab] 325 mg PO QDAY #30 tablet 06/24/21 Unknown Rx Oxycodone HCl 5 mg PO Q6HR PRN #20 capsule 06/24/21 Unknown Rx Vitamin 1 tab PO DAILY 06/24/21 06/24/21 06/21/21 History Active Medications: Generic Name Dose Route Start Last Admin Trade Name Freq PRN Reason Stop Dose Admin Acetaminophen 1,000 mg 06/25/21 10:00 06/30/21 10:06 Acetaminophen 500 Mg Tab PO 1,000 mg Q6H HYACINTH Administration Amlodipine Besylate 10 mg 06/29/21 11:00 06/30/21 10:12 Amlodipine 10 Mg Tab PO 10 mg QDAY HYACINTH Administration Butorphanol Tartrate 1 mg 06/25/21 09:00 Butorphanol 2 Mg/1 Ml Inj IV Q2H PRN Moderate pain (4-6) Butorphanol Tartrate 2 mg 06/25/21 09:00 Butorphanol 2 Mg/1 Ml Inj IV Q2H PRN Severe Pain (7-10) Ephedrine Sulfate 10 mg 06/24/21 20:54 06/24/21 20:55 Ephedrine Sulfate 50 Mg/1 Ml Inj IV 10 mg Q5M PRN Administration Blood Pressure Ferrous Sulfate 325 mg 06/24/21 22:00 07/01/21 10:55 Ferrous Sulfate 325 Mg Tab PO 325 mg BID HYACINTH Administration Oxytocin/Sodium Chloride 30 units in 500 mls @ 40 mls/hr 06/24/21 14:00 Pitocin/Ns 30 Unit/500ml IV TITR HYACINTH Protocol Magnesium Sulfate 40 gm in 1,000 mls @ 50 mls/hr 06/24/21 14:00 06/24/21 14:41 Magnesium Sulfate 40gm/1000ml IV 2 gm/hr DIRECT HYACINTH 50 mls/hr Administration 2 GM/HR Oxytocin/Sodium Chloride 30 units in 500 mls @ 40 mls/hr 06/24/21 20:02 Pitocin/Ns 30 Unit/500ml IV TITR HYACINTH Protocol Sodium Chloride 500 mls @ 50 mls/hr 06/24/21 22:00 Nacl 0.9% 500 Ml IV DIRECT HYACINTH Lactated Ringer's 1,000 mls @ 75 mls/hr 06/28/21 13:30 07/01/21 01:09 Lactated Ringers IV 75 mls/hr DIRECT HYACINTH Administration Labetalol HCl 200 mg 06/28/21 14:00 07/01/21 14:50 Labetalol 200 Mg Tab PO 200 mg TID HYACINTH Administration Magnesium Hydroxide 30 ml 06/24/21 20:02 06/28/21 23:20 Magnesium Hydroxide (Mom) Oral Liqd Udc PO 30 ml QHS PRN Administration Constip Unrelieved By Senna Misoprostol 800 mcg 06/24/21 13:11 Misoprostol 200 Mcg Tab MT ONCE PRN Uterine Bleeding Multi-Ingredient Ointment 1 applic 06/24/21 20:02 Lanolin/Zinc/Dimethicone (Lansinoh) 7 Gm TP PRN PRN dryness/cracking Multivitamins/Iron/Calcium 1 each 06/25/21 10:00 07/01/21 10:55 [id number] Fumarate-Folic Acid Vit Tab PO 1 each QDAY HYACINTH Administration Naloxone HCl 0.1 mg 06/24/21 20:02 Naloxone 0.4 Mg/1 Ml Inj IV Q2MIN PRN Res Rate </= 8 or 02 SAT < 92% Ondansetron HCl 4 mg 06/24/21 20:02 06/28/21 12:24 Ondansetron 4 Mg/2 Ml Inj IV 4 mg Q8H PRN Administration Nausea And Vomiting Oxycodone HCl 5 mg 06/25/21 09:00 06/28/21 23:21 Oxycodone 5 Mg Tab PO 5 mg Q6H PRN Administration Pain, Moderate (4-6) Promethazine HCl 25 mg 06/24/21 20:02 Promethazine 25 Mg Rect Supp MT Q6H PRN N/V IF NPO AND NO IV ACCESS Senna 17.2 mg 06/24/21 20:02 Sennosides 8.6 Mg Tab PO QHS PRN Constipation Simethicone 80 mg 06/24/21 20:02 06/28/21 15:04 Simethicone 80 Mg Chew Tab PO 80 mg Q6H PRN Administration Gas pain Witch Meghann/Glycerin 1 each 06/24/21 20:02 Witch Meghann/ Glycerin Pad TP PRN PRN Hemorrhoids/cleansing/soothing
--- NOTE | 2021-07-01 16:55 | Discharge Summary ---
Providers - Providers Date of Admission: 06/24/21 13:11 Date of discharge: 07/01/21 (Okay and in good condition for discharge home.) Attending physician: ISAC GERARD MD 06/25/21 19:20 Consult to Physician [CONS] Routine Comment: Consulting Provider: MCKINLEY PEPE Physician Instructions: Reason For Exam: elevated creatnine 06/27/21 12:40 Consult to Mental Health [CONS] Routine Reason For Exam: Stillborn, depression score 11 on EPDS Primary care physician: ISAC GERARD MD Hospitalization Reason for admission: IUFD Delivery: Procedure: repeat low transverse Episiotomy: none Incision: normal, dry, intact Other procedures: none complications: other (Pre eclampsia with severe features, LIAM, IUFD) Discharge diagnosis: intrapartum demise, delivery baby: female Pertinent studies: Pt denies BRAND, blurred vision, spots before her eyes, chest pain, shortness of breath, and upper abdominal pain. We discussed how to take a blood pressure at home and when to call the television maintenance man providers with questions and concerns. She is to follow up with our office in 1 week and with nephrology in 2 weeks. She was provided the number to nephrology for follow up ([phone]). Pt was also seen by the mental health team d/t grief from IUFD. She was appropriately grieving. Today she denies SI, feelings of harming herself or anyone else. Hospital course: S: Pt doing well. Has a strong desire to be discharged home. Ambulating, voiding, and passing flatus okay. BC: Undecided. O: VSS. Blood pressure ranges have been mostly 116-140's/70-80's. Minimal bleeding noted. Incision open to air, steri strips intact. No s/sx of infection and no drainage noted. A: 35 y.o. s/p rpt , IUFD, pre eclampsia with severe features, LIAM. Now in good condition and can be discharged home. P: Discharge home with instructions. To schedule a blood pressure check and incision check in office in 1 week. To schedule a follow up with the supervisor coin machine in 2 week. Condition at discharge: Good Disposition: 01 HOME / SELF CARE / HOMELESS Plan - Discharge Medications Prescriptions: Acetaminophen 500 mg PO Q6HR #30 capsule amLODIPine 10 mg PO DAILY #90 tab Docusate Sodium [Colace] 100 mg PO BID #60 capsule Ferrous Sulfate [Feosol 325 MG tab] 325 mg PO QDAY #30 tablet labetaloL [Labetalol 200mg TAB] 200 mg PO TID #90 tablet Oxycodone HCl 5 mg PO Q6HR PRN #20 capsule PRN Reason: Pain , Severe (7-10) - Provider Discharge Summary Activity: routine, no sex for 6 weeks, no heavy lifting 4 weeks, no strenuous exercise Diet: routine Instructions: routine Additional instructions: [] Smoking cessation referral if applicable(refer to patient education folder for contact #) [] Refer to [facility] Booklet Call your doctor immediately for: * Fever > 100.5 * Heavy vaginal bleeding ( >1 pad per hour) * Severe persistent headache * Shortness of breath * Reddened, hot, painful area to leg or breast * Drainage or odor from incision. * Keep incision clean and dry at all times and follow doctor's instructions regarding bathing/showering We are very sorry about your loss! Pleas call our office and schedule a blood pressure and incision check in 1 week. Please follow up with the kidney doctors in two weeks. Their office number is [phone]. Should you have any questions or concerns after discharge, please do not hesitate to call our office at [phone]. Taking your blood pressure at home Please take your blood pressure at least once daily Take your blood pressure medication as written by your provider Taking your blood pressure with a wrist monitor: 1. Put the blood pressure cuff on your wrist. Make sure it is not on the bone of your wrist. 2. Sit with your legs uncrossed and feet flat on the ground. 3. Wait 5-10 minutes before taking your blood pressure. 4. If you wrist monitor requires you to put your arm across your chest: After 5-10 minutes, put your arm across your chest like you are about to say the pledge of horacio. Taking your blood pressure with a cuff monitor: 1. Put the blood pressure cuff on your arm. 2. Sit with your legs uncrossed and feet flat on the ground. Make sure your arm is relaxed on a table or your kitchen table and bent at a 90 degree angle. 3. After 5-10 minutes push the button to take your blood pressure. While you are at home, if you experience a headache, blurred vision, spots before your eyes, chest pain, shortness of breath, and pain in your upper belly, and/or your blood pressure is 140/90 or greater please call the on-call provider immediately. - Follow up plan Follow up: ISAC GERARD MD [Primary Care Provider] - 7 Days MCKINLEY PEPE MD [Staff Physician] - 7 Days
[2021-07-01 19:37] VITALS: BP 134/82
== END 2021-07-01 19:42 | disposition home or self-care (01) | DRG 786 ==
LOC: TRG 11:57 → APU 11:59 → TRG 13:11 → APU 13:11 → LD 19:52 → OB 06-26 08:54
PROVIDERS: ADMIT Student in an Organized Health Care Education/Training Program; ATTEND Student in an Organized Health Care Education/Training Program
PROC: 10D00Z1 Extraction of Products of Conception, Low, Open Approach (ICD-10-PCS; principal; 2021-06-24)
PROC: 30233N1 Transfusion of Nonautologous Red Blood Cells into Peripheral Vein, Percutaneous Approach (ICD-10-PCS; 2021-06-24)
DX: O36.4XX0 Maternal care for intrauterine death, not applicable or unspecified (principal); O45.93 Premature separation of placenta, unspecified, third trimester; O60.14X0 Preterm labor third trimester with preterm delivery third trimester, not applicable or unspecified; O90.4 Postpartum acute kidney failure; N17.9 Acute kidney failure, unspecified; D62 Acute posthemorrhagic anemia; R03.0 Elevated blood-pressure reading, without diagnosis of hypertension; Z37.1 Single stillbirth; Z3A.36 36 weeks gestation of pregnancy; Z20.822 Contact with and (suspected) exposure to COVID-19; O14.14 Severe pre-eclampsia complicating childbirth; O99.02 Anemia complicating childbirth
CPT/HCPCS: 36415; 76770; 76815; 80048; 80053; 81001; 81015; 82565; 82570; 83615; 83735; 83970; 84100; 84132; 84156; 84300; 84450; 84460; 84550; 85007; 85014; 85018; 85025; 85027; 85379; 85384; 85610; 85730; 86592; 86850; 86900; 86901; 86920; 87076; 87086; 87186; 88307; 89050; G0378; J0690; J1100; J1170; J1885; J2250; J2405; J2765; J3010; J3475; J3490; J7040; J7120; P9016; U0003